=== PATIENT | female | born 1980 | race Caucasian/White ===

== ENCOUNTER 2021-01-12 11:20 | Inpatient (IN) | payer MEDICARE, MEDICAID, SELFPAY ==
[2021-01-12] VITALS (7 sets, daily range): BP systolic 108–130; BP diastolic 53–77; PULSE 73–102; RESP 16–22; TEMP 36–37.5; O2SAT 92–98; BMI 32.3
--- NOTE | ~2021-01-12 | XR_ITS ---
EXAMINATION: XR CHEST CLINICAL INFORMATION: Shortest of breath COMPARISON: None TECHNIQUE: AP portable view of the chest was obtained. FINDINGS: There are patchy regions of bilateral groundglass disease. No pneumothorax or significant pleural effusion. Heart normal size. No evidence of pulmonary edema. XR/XR chest 1V IMPRESSION: Bilateral patchy regions of groundglass opacity which can be seen with reactive airways disease or interstitial/atypical pneumonitis. Covid not excluded.
--- NOTE | ~2021-01-12 | CT_ITS ---
EXAMINATION: CT ABDOMEN AND PELVIS WITHOUT CONTRAST CLINICAL INFORMATION: Abdominal pain. COMPARISON: Chest radiograph done earlier the same day. TECHNIQUE: Multidetector volumetric imaging was performed from the superior aspect of the liver through the pubic symphysis. Sagittal and coronal reformatted images were obtained on the technologist's workstation. This CT examination was performed using dose optimization techniques as appropriate, variously including the following: *Automated exposure control. *Adjustment of mA and/or kV according to patient size (this includes techniques or standardized protocols for targeted exams where dose is matched to indication/reason for exam; i.e. extremities or head). *Use of iterative reconstruction technique. DLP: 768 mGy-cm FINDINGS: LUNG BASES: There are patchy ground-glass airspace opacities throughout the visualized lung bases, similar when compared to the recent chest radiograph. Findings can be seen in the setting of an infectious or inflammatory process, including viral pneumonia. LIVER, GALLBLADDER, AND BILIARY TREE: The liver is normal in size, shape, and attenuation. No focal hepatic lesion or biliary ductal dilatation is present. Status post cholecystectomy. PANCREAS: Unremarkable. SPLEEN: The spleen is enlarged measuring up to 16.5 cm in greatest dimension. ADRENAL GLANDS: Unremarkable. KIDNEYS AND URETERS: The kidneys are normal in size, shape, and attenuation. Left lower pole renal stones measuring 0.4 and 0.4 cm and located approximately 12.2 cm from the posterior axillary line. No right-sided renal stone. No ureteral stone. No hydronephrosis or hydroureter. No perinephric stranding. BLADDER: Unremarkable. GASTROINTESTINAL TRACT: No bowel wall thickening or associated inflammatory change. No small or large bowel obstruction. Postsurgical changes likely indicating prior appendectomy. PERITONEAL CAVITY: No intra-abdominal free air or free fluid. No intra-abdominal mass or organized fluid collection/abscess formation. ABDOMINAL WALL: No significant hernia is appreciated. LYMPH NODES: No significant lymphadenopathy. VASCULAR: No abdominal aortic dilatation. Scattered atherosclerotic calcifications. PELVIC VISCERA: The uterus and adnexa are unremarkable. OSSEOUS STRUCTURES: Unremarkable. CT/CT abdomen pelvis wo con IMPRESSION: 1. Patchy ground-glass airspace opacities throughout the visualized lung bases, similar when compared to the recent chest radiograph. Findings can be seen in the setting of an infectious or inflammatory process, including viral pneumonia. 2. Splenomegaly. 3. Non-obstructing left lower pole renal stones. No hydronephrosis or hydroureter. 4. No intra-abdominal mass, lymphadenopathy, or ascites.
--- NOTE | ~2021-01-12 | XR_ITS ---
EXAMINATION: XR CHEST CLINICAL INFORMATION: Hypoxia COMPARISON: Previous chest x-ray 01/12/2021 TECHNIQUE: Frontal view of the chest was obtained. FINDINGS: The cardiac and mediastinal contours are stable. The lung volumes are low. There is increasing bilateral airspace disease. There is no pleural effusion or pneumothorax. Bony structures are unremarkable. XR/XR chest 1V IMPRESSION: Low lung volumes and increasing bilateral airspace disease. Covid infection should be excluded.
--- NOTE | 2021-01-12 12:57 | ED_ITS ---
HPI - General Adult General Chief complaint: General Medical Stated complaint: FLU [place]S Time Seen by Provider: 01/12/21 12:47 Source: patient Mode of arrival: ambulatory Limitations: no limitations History of Present Illness HPI narrative: 40-year-old female [facility], with a recent exposure to positive COVID personal, patient presented today with generalized body ache, fever, chills, shortness of breath, sneezing and coughing. Patient presented today with her daughter who has similar symptoms. Related Data Allergies Allergy/AdvReac Type Severity Reaction Status Date / Time narco Allergy Unknown Uncoded 01/12/21 11:55 Review of Systems Review of Systems: All other systems are reviewed and are negative Constitutional: Reports as per HPI and Reports no additional constitutional complaints Eyes: Reports as per HPI and Reports no additional eye complaints Reports system reviewed and no additional complaints, except as documented Cardiovascular: Reports as per HPI and Reports no additional cardiovascular complaints Respiratory: Reports as per HPI and Reports no additional respiratory complaints Gastrointestinal: Reports as per HPI and Reports no additional gastrointestinal complaints Genitourinary: Reports no additional female genitourinary complaints Musculoskeletal: Reports no additional musculoskeletal complaints Skin/Breast: Reports system reviewed and no additional complaints, except as docu Psychiatric: Reports no additional psychiatric complaints Endocrine: Reports no additional endocrine complaints Hematologic/Lymphatic: Reports no additional hematologic/lymphatic complaints Allergic/Immunologic: Reports no additional allergic/immunologic complaints Reports system reviewed and no additional complaints, except as documented and Reports Abnormal speech present [facility] Past Medical History Medical History Diabetes Social History Social History Alcohol intake: never Smoking Status: Never smoker Smoked in Last 30 Days: No Use of substances other than those prescribed or required for medical reasons: No Advance Directives: Yes Advance Directives Information Provided: No Advance Directives on File: No Physical Exam Vital Signs: Vital Signs: Last Vital Signs Temp 98.3 F 01/12/21 13:22 Pulse 97 01/12/21 13:22 Resp 22 H 01/12/21 13:22 BP 129/67 01/12/21 13:22 Pulse Ox 92 01/12/21 13:22 Body Mass Index 32.3 Vital signs have been reviewed as appeared to be correct. Blood pressure normal. Heart rate is tachycardic. Respiration rate normal. Temperature normal. Oxygen saturation normal. Appearance: Alert. Oriented X3. No acute distress. Head: Normal external exam. Normocephalic. Atraumatic. No Vidales signs noted. No raccoon eyes noted Eyes: PERRLA. EOMI. Conjunctiva and sclera normal. Eyelids normal. ENT: TM's Normal. Pharynx normal. Uvula midline. Moist mucous membranes. No trismus noted. No drooling noted. No muffled voice noted. Neck: Normal inspection. Neck supple. FROM. No adenopathy. Thyroid Normal. No meningeal signs. No neck mass noted. CVS: Normal heart rate and rhythm. Heart sound normal. No murmurs noted. Pulses normal throughout. Respiratory: No respiratory distress. Painless inspiration. Breath sounds normal. No wheezes/rales/rhonchi noted. Chest nontender. No accessory muscle usage noted or decreased air movement noted. Abdomen: Soft and nontender. Bowel sounds normal in all 4 quadrants. No distention noted. No organomegaly noted. No visible injury noted. Back: No CVA tenderness. Full range of motion noted. Skin: Skin warm and dry. Normal skin color. Normal skin turgor. No rashes/lesions/lacerations noted. Extremities: No lower extremity edema. Extremities exhibit normal range of motion. Extremities nontender. Neuro: Oriented X 3. No motor deficit. No sensory deficit. Reflexes normal. Course Course Course Narrative: 40-year-old female COVID positive, found to be hypoxic while in the emergency department on room air, patient now is 94% on 3 L of oxygen. Medical Decision Making Lab Data Lab results reviewed: Yes I reviewed the patient's lab results. Labs: Lab Results 01/12/21 Range/Units 12:56 COVID-19 (KESHIA) Positive A (Negative) COVID-19 Clin Com See Note Imaging Data Chest x-ray: Radiologist's impression: Bilateral patchy regions of groundglass opacity which can be seen with reactive airways disease or interstitial/atypical pneumonitis. Covid not excluded. Discharge Plan Discharge Clinical Impression: Pneumonia due to COVID-19 virus, Hypoxia Patient Disposition: Admitted As Inpatient
[2021-01-12] MEDS: Ibuprofen 600 MG TABLET PO (13:21)
[2021-01-12 13:26] LABS: COVID-19 Test Positive (Negative)
--- NOTE | 2021-01-12 14:11 | PC.NURSE ---
Pt desat to 89% on room air with ambulating 2 steps. on 2l now 96%.
--- NOTE | 2021-01-12 16:01 | PM.IMHP ---
History of Present Illness Date of Service: 01/12/21 Chief Complaint: Shortness of breath and cough 40F presented with shortness of breath, cough, and fever. Symptoms started 7-10 days ago. Patient had COVID exposure at her [facility]. She tested positive at [facility] ED on 01/08/2021. She was discharged from the ED about point as she was not hypoxic. She was given a pulse ox. Her symptoms worsened. On night prior to admission she had saturations in low 90s so she decided to come to the ED. in ED patient had saturations in the high 80s on ambulation and appeared dyspneic and diaphoretic. Review of Systems Review of Systems: Constitutional: fever, Chills Eyes: denies blurry vision ENT: denies sore throat CVS: denies chest pain Respiratory: dyspnea GI: no abdominal pain : denies dysuria MSK: denies neck pain Skin: denies rash Neuro: denies specific motor weakness Psych: denies suicidal ideation Endocrine: denies heat/cold intoleratnce Hematologic: denies easy bleeding Allergy: denies hives [facility] Medical History Diabetes Hyperlipidemia Proteinuria Pertinent family history: no cad Family history: reviewed and not pertinent Surgical History History of History of knee surgery History of shoulder surgery Hx of breast reduction, elective Social History Alcohol intake: never Smoking Status: Never smoker Smoked in Last 30 Days: No Use of substances other than those prescribed or required for medical reasons: No Advance Directives: Yes Advance Directives Information Provided: No Advance Directives on File: No Meds Allergies Allergy/AdvReac Type Severity Reaction Status Date / Time narco Allergy Unknown Uncoded 01/12/21 11:55 Active Medications: Current Medications Generic Name Dose Route Start Last Admin Trade Name Freq PRN Reason Stop Dose Admin Pharmacy Consult 1 each 01/12/21 15:08 Consult Rx Perform Med Rec MISCELLANE ONCE PRN Consult order Physical Exam Vital Signs and Narrative: Vital Signs: Last Vital Signs Temp 98.3 F 01/12/21 13:22 Pulse 97 01/12/21 13:22 Resp 22 H 01/12/21 13:22 BP 129/67 01/12/21 13:22 Pulse Ox 92 01/12/21 13:22 Body Mass Index 32.3 General: diaphoretic, sob HEENT: atraumatic Neck: normal to visual inspection CVS: S1, S2, RRR Resp: rales Chest: non tender GI: soft, non tender, non distended : no CVA tenderness Skin: no rashes Extremities: no edema Neuro: Oriented X3, grossly intact Psych: cooperative Results Labs Labs: Laboratory Results - last 24 hr 01/12/21 12:56 COVID-19 (KESHIA) Positive A COVID-19 Clin Com See Note Imaging Radiologist's Impressions: Impressions Chest X-Ray 01/12/21 12:57 IMPRESSION: Bilateral patchy regions of groundglass opacity which can be seen with reactive airways disease or interstitial/atypical pneumonitis. Covid not excluded. Assessment and Plan (1) Proteinuria: Status: Acute (2) Hyperlipidemia: Status: Acute (3) Diabetes: Status: Acute (4) Acute respiratory failure with hypoxia: Status: Acute (5) Pneumonia due to COVID-19 virus: Status: Acute 40F presented with shortness of breath and cough Acute hypoxic respiratory failure secondary to COVID pneumonia IV Decadron O2 support High risk due to diabetes, obesity Diabetes with protamine Insulin FREEDOM-I HLD statin obesity weight loss
[2021-01-12 16:26] LABS: Basophils Percent Auto 0.2 % (0-2); Hematocrit 28.5 % (37-47); Hemoglobin 9.6 g/dl (12.0-16.0); Imm Gran Abs Auto 0.04 X10*3/uL (0.00-0.03); Imm Gran Pct Auto 0.7 % (0.0-0.4); Lymphocytes Absolute Auto 1.1 X10*3/uL (1.2-4.9); Lymphocytes Percent Auto 20.7 % (20-40); MANUAL DIFF FLAG SCAN; Mean Corpuscular HGB Conc 33.7 g/dl (31.0-35.0); Mean Corpuscular Hemoglobin 30.1 pg (27.0-33.0); Mean Corpuscular Volume 89.3 fL (80-98); Mean Platelet Volume 10.7 fL (9.4-12.3); Monocytes Absolute Auto 0.4 X10*3/uL (0.1-1.2); Monocytes Percent Auto 7.1 % (2-11); Neutrophils Absolute Auto 3.9 X10*3/uL (2.0-8.3); Neutrophils Percent Auto 71.3 % (45-73); Platelet Count 142 X10*3/uL (160-400); Red Blood Count 3.19 X10*6/uL (4.20-5.50); Red Cell Distribution Width 12.1 % (11.0-16.0); SCAN SMEAR FLAG 1; White Blood Count 5.5 X10*3/uL (4.8-10.8)
[2021-01-12 16:43] LABS: SLIDE REVIEW VERIFIED
[2021-01-12 16:53] LABS: Anion Gap 13 (12-20); Blood Urea Nitrogen 17 mg/dL (9-16); Calcium 7.9 mg/dL (8.4-10.2); Carbon Dioxide 22 mmol/L (22-29); Chloride 105 mmol/L (96-108); Creatinine Clr Calc Pharmacy 96.5; Estimated Glomerular Filt Rate > 60; Glucose Random 146 mg/dL (60-115); Potassium 4.4 mmol/L (3.3-5.1); Sodium 136 mmol/L (135-145)
[2021-01-12] MEDS: dexAMETHasone sod phosphate 4 MG/ML VIAL 6 MG IVPUSH (17:37)
[2021-01-12] MEDS: Morphine Sulfate 2 MG/ML CARTRIDGE IVPUSH (17:44)
[2021-01-12 17:48] LABS: Glucose, Whole Blood 180 mg/dL (60-115)
[2021-01-12] MEDS: Insulin Lispro 100 UNIT/ML 3 ML VIAL SUBCUT ×2 (17:57→22:03)
--- NOTE | 2021-01-12 20:01 | PC.NURSE ---
x1 attempt to call report- awaiting callback
[2021-01-12 20:12] LABS: UPreg QC Valid YES; Urine Pregnancy NEGATIVE (NEGATIVE)
[2021-01-12 21:58] LABS: Glucose, Whole Blood 344 mg/dL (60-115)
[2021-01-12] MEDS: Insulin Glargine,Hum.rec.anlog 100 UNIT/ML 10 ML VIAL 20 UNIT SUBCUT (22:02)
[2021-01-12] MEDS: Enoxaparin Sodium 40 MG/0.4 ML SYRINGE SUBCUT (22:03)
[2021-01-12] MEDS: Atorvastatin Calcium 20 MG TABLET PO (22:03)
[2021-01-12] MEDS: Gabapentin 100 MG CAPSULE PO (22:03)
[2021-01-12 22:55] LABS: Alanine Aminotransferase 27 U/L (0-31); Albumin Level 3.1 g/dL (3.5-5.0); Alkaline Phosphatase 87 U/L (39-117); Anion Gap 15 (12-20); Aspartate Amino Transferase 69 U/L (5-31); Blood Urea Nitrogen 20 mg/dL (9-16); Calcium 7.8 mg/dL (8.4-10.2); Carbon Dioxide 22 mmol/L (22-29); Chloride 103 mmol/L (96-108); Creatinine Clr Calc Pharmacy 77.2; Estimated Glomerular Filt Rate 58; Glucose Random 396 mg/dL (60-115); Lipase 47 U/L (8-78); Potassium 5.2 mmol/L (3.3-5.1); Sodium 135 mmol/L (135-145); Total Protein 6.1 g/dL (6.5-8.0)
[2021-01-13] VITALS (8 sets, daily range): BP systolic 110–126; BP diastolic 55–70; PULSE 71–78; RESP 17–18; TEMP 36.1–37.1; O2SAT 80–96
[2021-01-13] MEDS: 0.9 % Sodium Chloride Flush 3 ML SYRINGE IVFLUSH ×4 (00:05→20:56)
[2021-01-13 07:15] LABS: Hematocrit 30.5 % (37-47); Hemoglobin 10.3 g/dl (12.0-16.0); Imm Gran Abs Auto 0.05 X10*3/uL (0.00-0.03); Imm Gran Pct Auto 1.1 % (0.0-0.4); Lymphocytes Absolute Auto 0.9 X10*3/uL (1.2-4.9); Lymphocytes Percent Auto 19.9 % (20-40); MANUAL DIFF FLAG SCAN; Mean Corpuscular HGB Conc 33.8 g/dl (31.0-35.0); Mean Corpuscular Hemoglobin 30.2 pg (27.0-33.0); Mean Corpuscular Volume 89.4 fL (80-98); Mean Platelet Volume 11.3 fL (9.4-12.3); Monocytes Absolute Auto 0.4 X10*3/uL (0.1-1.2); Monocytes Percent Auto 7.9 % (2-11); Neutrophils Absolute Auto 3.3 X10*3/uL (2.0-8.3); Neutrophils Percent Auto 71.1 % (45-73); Platelet Count 168 X10*3/uL (160-400); Red Blood Count 3.41 X10*6/uL (4.20-5.50); Red Cell Distribution Width 12.1 % (11.0-16.0); SCAN SMEAR FLAG 1; White Blood Count 4.6 X10*3/uL (4.8-10.8)
[2021-01-13 07:19] LABS: Glucose, Whole Blood 233 mg/dL (60-115)
[2021-01-13 07:33] LABS: Anion Gap 15 (12-20); Blood Urea Nitrogen 21 mg/dL (9-16); Carbon Dioxide 22 mmol/L (22-29); Chloride 106 mmol/L (96-108); Creatinine Clr Calc Pharmacy 100.1; Estimated Glomerular Filt Rate > 60; Glucose Random 290 mg/dL (60-115); Potassium 5.3 mmol/L (3.3-5.1); Sodium 138 mmol/L (135-145)
[2021-01-13 08:02] LABS: SLIDE REVIEW VERIFIED
[2021-01-13] MEDS: Insulin Lispro 100 UNIT/ML 3 ML VIAL SUBCUT ×4 (08:31→20:51)
[2021-01-13] MEDS: Fenofibrate 160 MG TABLET PO (08:32)
[2021-01-13] MEDS: metFORMIN HCl 1,000 MG TABLET 1000 MG PO ×2 (08:32→16:54)
[2021-01-13] MEDS: dexAMETHasone sod phosphate 4 MG/ML VIAL 6 MG IVPUSH (08:32)
[2021-01-13] MEDS: Gabapentin 100 MG CAPSULE PO ×3 (08:32→20:52)
--- NOTE | 2021-01-13 09:59 | HO.PM.IMPN ---
Subjective Subjective Date of Service: 01/13/21 Interval History: sob Cardiovascular Cardiovascular: Reports no additional cardiovascular complaints Gastrointestinal Gastrointestinal: Reports no additional gastrointestinal complaints Physical Exam Vital Signs: Vital Signs: Last Vital Signs Temp 97.3 F 01/13/21 07:27 Pulse 75 01/13/21 08:32 Resp 17 01/13/21 07:27 BP 116/64 01/13/21 08:32 Pulse Ox 94 01/13/21 07:27 Body Mass Index 32.3 General: AO X 3, daiphoretic Resp: rhonchi CVS: S1,S2,RRR GI: soft, non tender, non distended Neuro: motor grossly intact Psych: appropriate affect Objective Data Current Medications Generic Name Dose Route Start Last Admin Trade Name Freq PRN Reason Stop Dose Admin Acetaminophen 650 mg 01/12/21 16:52 Acetaminophen 325 Mg Tablet PO Q6H PRN Pain, fever Atorvastatin Calcium 20 mg 01/12/21 21:00 01/12/21 22:03 Atorvastatin Calcium 20 Mg Tablet PO 20 mg BEDTIME CHETNA Administration Dexamethasone Sodium Phosphate 6 mg 01/12/21 16:52 01/13/21 08:32 Dexamethasone Sod Phosphate 4 Mg/Ml Vial IVPUSH 6 mg DAILY CHETNA Administration Enalapril Maleate 5 mg 01/13/21 09:00 01/13/21 08:32 Enalapril Maleate 5 Mg Tablet PO 5 mg DAILY CHETNA Administration Protocol Enoxaparin Sodium 40 mg 01/12/21 20:00 01/12/21 22:03 Enoxaparin Sodium 40 Mg/0.4 Ml Syringe SUBCUT 40 mg Q24H CHETNA Administration Fenofibrate 160 mg 01/13/21 09:00 01/13/21 08:32 Fenofibrate 160 Mg Tablet PO 160 mg DAILY CHETNA Administration Gabapentin 100 mg 01/12/21 21:00 01/13/21 08:32 Gabapentin 100 Mg Capsule PO 100 mg TID CHETNA Administration Insulin Glargine 20 unit 01/12/21 21:00 01/12/21 22:02 Insulin Glargine,Hum.Rec.Anlog 100 Unit/Ml 10 Ml Vial SUBCUT 20 unit BEDTIME CHETNA Administration Insulin Human Lispro 0 unit 01/12/21 16:52 01/13/21 08:31 Insulin Lispro 100 Unit/Ml 3 Ml Vial SUBCUT 4 unit QIDACHS CHETNA Administration Protocol Metformin HCl 1,000 mg 01/13/21 08:00 01/13/21 08:32 Metformin Hcl 1,000 Mg Tablet PO 1,000 mg BIDWM CHETNA Administration Morphine Sulfate 1 mg 01/12/21 20:45 Morphine Sulfate 2 Mg/Ml Cartridge IVPUSH Q6H PRN [facility] Consult 1 each 01/12/21 15:08 Consult Rx Perform Med Rec MISCELLANE ONCE PRN Consult order Sodium Chloride 3 ml 01/13/21 00:00 01/13/21 08:33 0.9 % Sodium Chloride Flush 3 Ml Syringe IVFLUSH 3 ml QSHIFT CHETNA Administration Labs CBC & Chem 7: 01/13/21 06:14 01/13/21 06:14 Assessment and Plan (1) Acute respiratory failure with hypoxia: Status: Acute (2) Pneumonia due to COVID-19 virus: Status: Acute Assessment and Plan: 40F presented with shortness of breath and cough Acute hypoxic respiratory failure secondary to COVID pneumonia IV Decadron day 12/05 O2 support High risk due to diabetes, obesity became severely hypoxic to 70s on ambulation on room air, recovered with rest and 3L o2 Diabetes with protamine Basal bolus Insulin FREEDOM-I HLD statin obesity weight loss
[2021-01-13] MEDS: Acetaminophen 325 MG TABLET 650 MG PO ×2 (10:37→16:54)
--- NOTE | 2021-01-13 10:43 | PC.NURSE ---
0830- Pt 93% on RA. Pt ambulated to bathroom and back, signficant dry cough present. O2 rechecked 80% RA. Pt plced back on 3L via NC, O2 92%. Dr. Carr made aware. No new orders.
[2021-01-13 11:22] LABS: Glucose, Whole Blood 275 mg/dL (60-115)
[2021-01-13] MEDS: Insulin Glargine,Hum.rec.anlog 100 UNIT/ML 10 ML VIAL 20 UNIT SUBCUT ×2 (11:33→20:51)
[2021-01-13] MEDS: Morphine Sulfate 2 MG/ML CARTRIDGE 1 MG IVPUSH (11:44)
[2021-01-13 16:20] LABS: Glucose, Whole Blood 294 mg/dL (60-115)
[2021-01-13 20:36] LABS: Glucose, Whole Blood 285 mg/dL (60-115)
[2021-01-13] MEDS: Enoxaparin Sodium 40 MG/0.4 ML SYRINGE SUBCUT (20:52)
[2021-01-13] MEDS: Atorvastatin Calcium 20 MG TABLET PO (20:52)
[2021-01-14] VITALS (10 sets, daily range): BP systolic 114–130; BP diastolic 63–75; PULSE 75–90; RESP 18–24; TEMP 36.4–37.3; O2SAT 90–94; BMI 32.3
[2021-01-14] MEDS: Morphine Sulfate 2 MG/ML CARTRIDGE 1 MG IVPUSH ×2 (02:09→10:00)
[2021-01-14 07:57] LABS: Glucose, Whole Blood 214 mg/dL (60-115)
[2021-01-14] MEDS: Insulin Lispro 100 UNIT/ML 3 ML VIAL SUBCUT ×4 (08:35→20:37)
[2021-01-14] MEDS: dexAMETHasone sod phosphate 4 MG/ML VIAL 6 MG IVPUSH (08:36)
[2021-01-14] MEDS: 0.9 % Sodium Chloride Flush 3 ML SYRINGE IVFLUSH ×3 (08:36→20:43)
[2021-01-14] MEDS: metFORMIN HCl 1,000 MG TABLET 1000 MG PO ×2 (08:37→16:30)
[2021-01-14] MEDS: Fenofibrate 160 MG TABLET PO (08:37)
[2021-01-14] MEDS: Gabapentin 100 MG CAPSULE PO ×3 (08:37→20:37)
--- NOTE | 2021-01-14 09:07 | MHC.CM.PN ---
Patient is on the Covid Unit and not reachable by phone at [phone]; CM spoke with NOK/MOTHER/Betty @ [phone].Weekend CM addressed IMM. Patient lives in an apartment with her teenage Daughter and she was functionally independent. The goal for dc is home/no services and CM has initiated and will follow for dc planning. Patient's Uncle will provide transportation to home.
--- NOTE | 2021-01-14 09:45 | HO.PM.IMPN ---
Subjective Subjective Date of Service: 01/14/21 Interval History: sob Cardiovascular Cardiovascular: Reports no additional cardiovascular complaints Respiratory Respiratory: Reports no additional respiratory complaints Physical Exam Vital Signs: Vital Signs: Last Vital Signs Temp 99.1 F 01/14/21 08:00 Pulse 86 01/14/21 08:37 Resp 22 H 01/14/21 08:00 BP 124/74 01/14/21 08:37 Pulse Ox 90 L 01/14/21 08:00 Body Mass Index 32.3 General: AO X 3, daiphoretic Resp: rhonchi CVS: S1,S2,RRR GI: soft, non tender, non distended Neuro: motor grossly intact Psych: appropriate affect Objective Data Current Medications Generic Name Dose Route Start Last Admin Trade Name Freq PRN Reason Stop Dose Admin Acetaminophen 650 mg 01/12/21 16:52 01/13/21 16:54 Acetaminophen 325 Mg Tablet PO 650 mg Q6H PRN Administration Pain, fever Atorvastatin Calcium 20 mg 01/12/21 21:00 01/13/21 20:52 Atorvastatin Calcium 20 Mg Tablet PO 20 mg BEDTIME CHETNA Administration Dexamethasone Sodium Phosphate 6 mg 01/12/21 16:52 01/14/21 08:36 Dexamethasone Sod Phosphate 4 Mg/Ml Vial IVPUSH 6 mg DAILY CHETNA Administration Enalapril Maleate 5 mg 01/13/21 09:00 01/14/21 08:37 Enalapril Maleate 5 Mg Tablet PO 5 mg DAILY CHETNA Administration Protocol Enoxaparin Sodium 40 mg 01/12/21 20:00 01/13/21 20:52 Enoxaparin Sodium 40 Mg/0.4 Ml Syringe SUBCUT 40 mg Q24H CHETNA Administration Fenofibrate 160 mg 01/13/21 09:00 01/14/21 08:37 Fenofibrate 160 Mg Tablet PO 160 mg DAILY CHETNA Administration Gabapentin 100 mg 01/12/21 21:00 01/14/21 08:37 Gabapentin 100 Mg Capsule PO 100 mg TID CHTENA Administration Insulin Glargine 20 unit 01/13/21 10:00 01/13/21 20:51 Insulin Glargine,Hum.Rec.Anlog 100 Unit/Ml 10 Ml Vial SUBCUT 20 unit Q12H CHETNA Administration Insulin Human Lispro 0 unit 01/12/21 16:52 01/14/21 08:35 Insulin Lispro 100 Unit/Ml 3 Ml Vial SUBCUT 4 unit QIDACHS CHETNA Administration Protocol Metformin HCl 1,000 mg 01/13/21 08:00 01/14/21 08:37 Metformin Hcl 1,000 Mg Tablet PO 1,000 mg BIDWM CHETNA Administration Morphine Sulfate 1 mg 01/12/21 20:45 01/14/21 02:09 Morphine Sulfate 2 Mg/Ml Cartridge IVPUSH 1 mg Q6H PRN Administration [facility] Consult 1 each 01/12/21 15:08 Consult Rx Perform Med Rec MISCELLANE ONCE PRN Consult order Sodium Chloride 3 ml 01/13/21 00:00 01/14/21 08:36 0.9 % Sodium Chloride Flush 3 Ml Syringe IVFLUSH 3 ml QSHIFT [facility] Administration Labs CBC & Chem 7: 01/13/21 06:14 01/13/21 06:14 Assessment and Plan (1) Acute respiratory failure with hypoxia: Status: Acute (2) Pneumonia due to COVID-19 virus: Status: Acute Assessment and Plan: 40F presented with shortness of breath and cough Acute hypoxic respiratory failure secondary to COVID pneumonia IV Decadron day 01/02 O2 support High risk due to diabetes, obesity Diabetes with protamine Basal bolus Insulin FREEDOM-I HLD statin obesity weight loss
[2021-01-14] MEDS: Insulin Glargine,Hum.rec.anlog 100 UNIT/ML 10 ML VIAL 20 UNIT SUBCUT ×2 (10:00→20:37)
[2021-01-14 11:50] LABS: Glucose, Whole Blood 210 mg/dL (60-115)
[2021-01-14] MEDS: ondansetron HCL 4 MG/2 ML VIAL IVPUSH ×2 (12:06→19:32)
[2021-01-14] MEDS: Morphine Sulfate 2 MG/ML CARTRIDGE IVPUSH ×2 (14:19→19:32)
[2021-01-14 16:19] LABS: Glucose, Whole Blood 225 mg/dL (60-115)
--- NOTE | 2021-01-14 18:33 | PC.NURSE ---
Patient complaining of 9 out of 10 pain to upper abdomen; order for Morphine 2 mg q 4 hours received. Patient resting comfortably, reports improvement with pain. Patient nauseas, order obtained for Zofran, patient reports improvement with nausea. Patient ambulates to bathroom with 1 assist and portable O2. Patient on 4 L of O2, SAT's in the low 90s. No further complaints, no complications.
[2021-01-14 20:10] LABS: Glucose, Whole Blood 196 mg/dL (60-115)
[2021-01-14] MEDS: Atorvastatin Calcium 20 MG TABLET PO (20:37)
[2021-01-14] MEDS: Enoxaparin Sodium 40 MG/0.4 ML SYRINGE SUBCUT (20:38)
[2021-01-15] VITALS (9 sets, daily range): BP systolic 120–125; BP diastolic 67–78; PULSE 70–84; RESP 18–20; TEMP 36.1–37; O2SAT 86–95
[2021-01-15] MEDS: ondansetron HCL 4 MG/2 ML VIAL IVPUSH ×4 (02:35→21:42)
[2021-01-15] MEDS: Morphine Sulfate 2 MG/ML CARTRIDGE IVPUSH ×3 (04:02→16:44)
[2021-01-15 06:51] LABS: Basophils Percent Auto 0.1 % (0-2); Hematocrit 29.9 % (37-47); Hemoglobin 9.8 g/dl (12.0-16.0); Imm Gran Abs Auto 0.21 X10*3/uL (0.00-0.03); Imm Gran Pct Auto 2.1 % (0.0-0.4); Lymphocytes Absolute Auto 1.5 X10*3/uL (1.2-4.9); MANUAL DIFF FLAG SCAN; Mean Corpuscular HGB Conc 32.8 g/dl (31.0-35.0); Mean Corpuscular Hemoglobin 29.6 pg (27.0-33.0); Mean Corpuscular Volume 90.3 fL (80-98); Mean Platelet Volume 10.8 fL (9.4-12.3); Monocytes Absolute Auto 0.8 X10*3/uL (0.1-1.2); Monocytes Percent Auto 7.8 % (2-11); Neutrophils Absolute Auto 7.6 X10*3/uL (2.0-8.3); Platelet Count 262 X10*3/uL (160-400); Red Blood Count 3.31 X10*6/uL (4.20-5.50); Red Cell Distribution Width 12.2 % (11.0-16.0); SCAN SMEAR FLAG 1; White Blood Count 10.1 X10*3/uL (4.8-10.8)
[2021-01-15 07:06] LABS: Anion Gap 15 (12-20); Blood Urea Nitrogen 21 mg/dL (9-16); Carbon Dioxide 26 mmol/L (22-29); Chloride 103 mmol/L (96-108); Estimated Glomerular Filt Rate > 60; Glucose Fasting 166 mg/dL (60-99); Potassium 4.8 mmol/L (3.3-5.1); Sodium 139 mmol/L (135-145)
[2021-01-15 07:14] LABS: Glucose, Whole Blood 153 mg/dL (60-115)
[2021-01-15 07:30] LABS: SLIDE REVIEW VERIFIED
[2021-01-15] MEDS: Insulin Lispro 100 UNIT/ML 3 ML VIAL SUBCUT ×4 (08:19→21:39)
[2021-01-15] MEDS: dexAMETHasone sod phosphate 4 MG/ML VIAL 6 MG IVPUSH (08:19)
[2021-01-15] MEDS: 0.9 % Sodium Chloride Flush 3 ML SYRINGE IVFLUSH ×3 (08:20→21:41)
[2021-01-15] MEDS: Fenofibrate 160 MG TABLET PO (08:20)
[2021-01-15] MEDS: Gabapentin 100 MG CAPSULE PO ×3 (08:20→21:37)
[2021-01-15] MEDS: metFORMIN HCl 1,000 MG TABLET 1000 MG PO ×2 (08:20→16:26)
[2021-01-15] MEDS: Insulin Glargine,Hum.rec.anlog 100 UNIT/ML 10 ML VIAL 20 UNIT SUBCUT ×2 (08:40→21:39)
[2021-01-15 11:09] LABS: Glucose, Whole Blood 220 mg/dL (60-115)
--- NOTE | 2021-01-15 14:29 | HO.PM.IMPN ---
Subjective Subjective Date of Service: 01/15/21 Interval History: Worsening shortness of breath Cardiovascular Cardiovascular: Reports no additional cardiovascular complaints Respiratory Respiratory: Reports no additional respiratory complaints Physical Exam Vital Signs: Vital Signs: Last Vital Signs Temp 97.2 F 01/15/21 11:32 Pulse 80 01/15/21 11:32 Resp 19 01/15/21 11:32 BP 121/78 01/15/21 11:32 Pulse Ox 94 01/15/21 11:32 Body Mass Index 32.3 General: AO X 3, daiphoretic Resp: rhonchi CVS: S1,S2,RRR GI: soft, non tender, non distended Neuro: motor grossly intact Psych: appropriate affect Objective Data Current Medications Generic Name Dose Route Start Last Admin Trade Name Freq PRN Reason Stop Dose Admin Acetaminophen 650 mg 01/12/21 16:52 01/13/21 16:54 Acetaminophen 325 Mg Tablet PO 650 mg Q6H PRN Administration Pain, fever Atorvastatin Calcium 20 mg 01/12/21 21:00 01/14/21 20:37 Atorvastatin Calcium 20 Mg Tablet PO 20 mg BEDTIME CHETNA Administration Dexamethasone Sodium Phosphate 6 mg 01/12/21 16:52 01/15/21 08:19 Dexamethasone Sod Phosphate 4 Mg/Ml Vial IVPUSH 6 mg DAILY CHETNA Administration Enalapril Maleate 5 mg 01/13/21 09:00 01/15/21 08:20 Enalapril Maleate 5 Mg Tablet PO 5 mg DAILY CHETNA Administration Protocol Enoxaparin Sodium 40 mg 01/12/21 20:00 01/14/21 20:38 Enoxaparin Sodium 40 Mg/0.4 Ml Syringe SUBCUT 40 mg Q24H CHETNA Administration Fenofibrate 160 mg 01/13/21 09:00 01/15/21 08:20 Fenofibrate 160 Mg Tablet PO 160 mg DAILY CHETNA Administration Gabapentin 100 mg 01/12/21 21:00 01/15/21 08:20 Gabapentin 100 Mg Capsule PO 100 mg TID CHETNA Administration Insulin Glargine 20 unit 01/13/21 10:00 01/15/21 08:40 Insulin Glargine,Hum.Rec.Anlog 100 Unit/Ml 10 Ml Vial SUBCUT 20 unit Q12H CHETNA Administration Insulin Human Lispro 0 unit 01/12/21 16:52 01/15/21 11:40 Insulin Lispro 100 Unit/Ml 3 Ml Vial SUBCUT 4 unit QIDACHS CHETNA Administration Protocol Metformin HCl 1,000 mg 01/13/21 08:00 01/15/21 08:20 Metformin Hcl 1,000 Mg Tablet PO 1,000 mg BIDWM CHETNA Administration Morphine Sulfate 1 mg 01/12/21 20:45 01/14/21 10:00 Morphine Sulfate 2 Mg/Ml Cartridge IVPUSH 1 mg Q6H PRN Administration [facility] Morphine Sulfate 2 mg 01/14/21 11:20 01/15/21 08:40 Morphine Sulfate 2 Mg/Ml Cartridge IVPUSH 2 mg Q4H PRN Administration pain Ondansetron HCl 4 mg 01/14/21 11:20 01/15/21 08:40 Ondansetron Hcl 4 Mg/2 Ml Vial IVPUSH 4 mg Q6H PRN Administration nausea Pharmacy Consult 1 each 01/12/21 15:08 Consult Rx Perform Med Rec MISCELLANE ONCE PRN Consult order Sodium Chloride 3 ml 01/13/21 00:00 01/15/21 08:20 0.9 % Sodium Chloride Flush 3 Ml Syringe IVFLUSH 3 ml QSHIFT CHETNA Administration Labs CBC & Chem 7: 01/15/21 05:46 01/15/21 05:46 Assessment and Plan (1) Acute respiratory failure with hypoxia: Status: Acute (2) Pneumonia due to COVID-19 virus: Status: Acute Assessment and Plan: 40F presented with shortness of breath and cough Acute hypoxic respiratory failure secondary to COVID pneumonia IV Decadron day 02/02 O2 support, slightly higher today High risk due to diabetes, obesity Diabetes with protamine Basal bolus Insulin FREEDOM-I HLD statin obesity weight loss
[2021-01-15 16:17] LABS: Glucose, Whole Blood 243 mg/dL (60-115)
--- NOTE | 2021-01-15 18:28 | PC.NURSE ---
Patient more tired than usual today. On 4L of O2 via NC this morning but began to desat to low-mid 80s. Patient placed on oximizer at 6L. O2 SAT now in the low 90s. Patient c/o 9 out of 10 upper abdominal pain, reports relief with morphine. Patient also reports nausea and reports relief with IV zofran. Patient ambulated to bathroom x 2 on portable O2 tank without difficulty, refuses further ambulation or to sit in recliner. No further issues or complaints.
[2021-01-15 20:31] LABS: Glucose, Whole Blood 186 mg/dL (60-115)
[2021-01-15] MEDS: Atorvastatin Calcium 20 MG TABLET PO (21:37)
[2021-01-15] MEDS: Morphine Sulfate 2 MG/ML CARTRIDGE 1 MG IVPUSH (21:37)
[2021-01-15] MEDS: Enoxaparin Sodium 40 MG/0.4 ML SYRINGE SUBCUT (21:38)
[2021-01-16] VITALS (7 sets, daily range): BP systolic 113–130; BP diastolic 64–74; PULSE 65–86; RESP 17–24; TEMP 36.1–36.9; O2SAT 91–94
[2021-01-16] MEDS: Morphine Sulfate 2 MG/ML CARTRIDGE IVPUSH ×2 (02:37→14:23)
[2021-01-16] MEDS: ondansetron HCL 4 MG/2 ML VIAL IVPUSH ×2 (02:37→14:23)
[2021-01-16 07:27] LABS: Glucose, Whole Blood 134 mg/dL (60-115)
[2021-01-16] MEDS: dexAMETHasone sod phosphate 4 MG/ML VIAL 6 MG IVPUSH (08:42)
[2021-01-16] MEDS: Gabapentin 100 MG CAPSULE PO ×3 (08:42→21:27)
[2021-01-16] MEDS: metFORMIN HCl 1,000 MG TABLET 1000 MG PO ×2 (08:42→16:37)
[2021-01-16] MEDS: Fenofibrate 160 MG TABLET PO (08:42)
[2021-01-16] MEDS: 0.9 % Sodium Chloride Flush 3 ML SYRINGE IVFLUSH ×2 (08:42→14:23)
[2021-01-16] MEDS: Insulin Glargine,Hum.rec.anlog 100 UNIT/ML 10 ML VIAL 20 UNIT SUBCUT ×2 (10:44→21:28)
[2021-01-16 11:26] LABS: Glucose, Whole Blood 210 mg/dL (60-115)
[2021-01-16] MEDS: Insulin Lispro 100 UNIT/ML 3 ML VIAL SUBCUT ×3 (11:56→21:28)
--- NOTE | 2021-01-16 13:37 | MHC.CM.PN ---
Patient is requiring O2 at 6 liters via NC r/t +COVID. Patient is also on IV MS and IV dexamethasone day 04/04. Discharge plan is home no services. Patient's uncle will provide transportation. CM will continue to follow for discharge needs.
--- NOTE | 2021-01-16 13:58 | HO.PM.IMPN ---
Subjective Subjective Date of Service: 01/16/21 Interval History: sob Cardiovascular Cardiovascular: Reports no additional cardiovascular complaints Gastrointestinal Gastrointestinal: Reports no additional gastrointestinal complaints Physical Exam Vital Signs: Vital Signs: Last Vital Signs Temp 97.8 F 01/16/21 12:00 Pulse 86 01/16/21 12:00 Resp 22 H 01/16/21 12:00 BP 121/64 01/16/21 12:00 Pulse Ox 91 L 01/16/21 12:00 Body Mass Index 32.3 General: AO X 3, daiphoretic Resp: rhonchi CVS: S1,S2,RRR GI: soft, non tender, non distended Neuro: motor grossly intact Psych: appropriate affect Objective Data Current Medications Generic Name Dose Route Start Last Admin Trade Name Freq PRN Reason Stop Dose Admin Acetaminophen 650 mg 01/12/21 16:52 01/13/21 16:54 Acetaminophen 325 Mg Tablet PO 650 mg Q6H PRN Administration Pain, fever Atorvastatin Calcium 20 mg 01/12/21 21:00 01/15/21 21:37 Atorvastatin Calcium 20 Mg Tablet PO 20 mg BEDTIME CHETNA Administration Dexamethasone Sodium Phosphate 6 mg 01/12/21 16:52 01/16/21 08:42 Dexamethasone Sod Phosphate 4 Mg/Ml Vial IVPUSH 6 mg DAILY CHETNA Administration Enalapril Maleate 5 mg 01/13/21 09:00 01/16/21 08:42 Enalapril Maleate 5 Mg Tablet PO 5 mg DAILY CHETNA Administration Protocol Enoxaparin Sodium 40 mg 01/12/21 20:00 01/15/21 21:38 Enoxaparin Sodium 40 Mg/0.4 Ml Syringe SUBCUT 40 mg Q24H CHETNA Administration Fenofibrate 160 mg 01/13/21 09:00 01/16/21 08:42 Fenofibrate 160 Mg Tablet PO 160 mg DAILY CHETNA Administration Gabapentin 100 mg 01/12/21 21:00 01/16/21 08:42 Gabapentin 100 Mg Capsule PO 100 mg TID CHETNA Administration Insulin Glargine 20 unit 01/13/21 10:00 01/16/21 10:44 Insulin Glargine,Hum.Rec.Anlog 100 Unit/Ml 10 Ml Vial SUBCUT 20 unit Q12H [facility]TNA Administration Insulin Human Lispro 0 unit 01/12/21 16:52 01/16/21 11:56 Insulin Lispro 100 Unit/Ml 3 Ml Vial SUBCUT 4 unit QIDACHS [facility] Administration Protocol Metformin HCl 1,000 mg 01/13/21 08:00 01/16/21 08:42 Metformin Hcl 1,000 Mg Tablet PO 1,000 mg BIDWM [facility]TNA Administration Morphine Sulfate 1 mg 01/12/21 20:45 01/15/21 21:37 Morphine Sulfate 2 Mg/Ml Cartridge IVPUSH 1 mg Q6H PRN Administration Breakthrough Pain Morphine Sulfate 2 mg 01/14/21 11:20 01/16/21 02:37 Morphine Sulfate 2 Mg/Ml Cartridge IVPUSH 2 mg Q4H PRN Administration pain Ondansetron HCl 4 mg 01/14/21 11:20 01/16/21 02:37 Ondansetron Hcl 4 Mg/2 Ml Vial IVPUSH 4 mg Q6H PRN Administration nausea Pharmacy Consult 1 each 01/12/21 15:08 Consult Rx Perform Med Rec MISCELLANE ONCE PRN Consult order Sodium Chloride 3 ml 01/13/21 00:00 01/16/21 08:42 0.9 % Sodium Chloride Flush 3 Ml Syringe IVFLUSH 3 ml QSHIFT [facility] Administration Labs CBC & Chem 7: 01/15/21 05:46 01/15/21 05:46 Assessment and Plan (1) Acute respiratory failure with hypoxia: Status: Acute (2) Pneumonia due to COVID-19 virus: Status: Acute Assessment and Plan: 40F presented with shortness of breath and cough Acute hypoxic respiratory failure secondary to COVID pneumonia IV Decadron day 03/04 O2 support, stable today but unable to wean High risk due to diabetes, obesity Diabetes with protamine Basal bolus Insulin FREEDOM-I HLD statin obesity weight loss
[2021-01-16 16:20] LABS: Glucose, Whole Blood 241 mg/dL (60-115)
--- NOTE | 2021-01-16 17:31 | PC.NURSE ---
PT ON 6L OXIMIZER. SATS RANGING FROM 88-94%.
[2021-01-16 20:33] LABS: Glucose, Whole Blood 168 mg/dL (60-115)
[2021-01-16] MEDS: Enoxaparin Sodium 40 MG/0.4 ML SYRINGE SUBCUT (21:27)
[2021-01-16] MEDS: Atorvastatin Calcium 20 MG TABLET PO (21:27)
[2021-01-16] MEDS: Morphine Sulfate 2 MG/ML CARTRIDGE 1 MG IVPUSH (21:55)
[2021-01-17] VITALS (7 sets, daily range): BP systolic 119–130; BP diastolic 58–74; PULSE 69–86; RESP 18–20; TEMP 36–37; O2SAT 90–95
[2021-01-17] MEDS: 0.9 % Sodium Chloride Flush 3 ML SYRINGE IVFLUSH ×4 (00:19→21:53)
[2021-01-17] MEDS: Morphine Sulfate 2 MG/ML CARTRIDGE 1 MG IVPUSH (03:51)
[2021-01-17 07:25] LABS: Glucose, Whole Blood 119 mg/dL (60-115)
[2021-01-17] MEDS: dexAMETHasone sod phosphate 4 MG/ML VIAL 6 MG IVPUSH (08:22)
[2021-01-17] MEDS: metFORMIN HCl 1,000 MG TABLET 1000 MG PO ×2 (08:23→16:25)
[2021-01-17] MEDS: Gabapentin 100 MG CAPSULE PO ×3 (08:23→21:53)
[2021-01-17] MEDS: Fenofibrate 160 MG TABLET PO (08:23)
[2021-01-17] MEDS: Insulin Glargine,Hum.rec.anlog 100 UNIT/ML 10 ML VIAL 20 UNIT SUBCUT (08:26)
[2021-01-17 11:07] LABS: Glucose, Whole Blood 204 mg/dL (60-115)
[2021-01-17] MEDS: Insulin Lispro 100 UNIT/ML 3 ML VIAL SUBCUT ×2 (11:41→16:26)
--- NOTE | 2021-01-17 14:23 | P.PNIM_ITS ---
Subjective Subjective Date of Service: 01/17/21 Interval History: Remain short of breath. She is on 6 L of oxygen and satting at 95%. Physical Exam Vital Signs: Vital Signs: Last Vital Signs Temp 98.6 F 01/17/21 11:28 Pulse 78 01/17/21 11:28 Resp 18 01/17/21 11:28 BP 122/70 01/17/21 11:28 Pulse Ox 95 01/17/21 11:28 Body Mass Index 32.3 General: AO X 3, no acute distress Resp: Normal respiratory effort, no accessory muscle use. CVS: regular rate on monitor GI: +BS, NT, no distention Skin: No rash Neuro: motor grossly intact Psych: appropriate affect Objective Data Current Medications Generic Name Dose Route Start Last Admin Trade Name Freq PRN Reason Stop Dose Admin Acetaminophen 650 mg 01/12/21 16:52 01/13/21 16:54 Acetaminophen 325 Mg Tablet PO 650 mg Q6H PRN Administration Pain, fever Atorvastatin Calcium 20 mg 01/12/21 21:00 01/16/21 21:27 Atorvastatin Calcium 20 Mg Tablet PO 20 mg BEDTIME CHETNA Administration Dexamethasone Sodium Phosphate 6 mg 01/12/21 16:52 01/17/21 08:22 Dexamethasone Sod Phosphate 4 Mg/Ml Vial IVPUSH 6 mg DAILY CHETNA Administration Enalapril Maleate 5 mg 01/13/21 09:00 01/17/21 08:23 Enalapril Maleate 5 Mg Tablet PO 5 mg DAILY CHETNA Administration Protocol Enoxaparin Sodium 40 mg 01/12/21 20:00 01/16/21 21:27 Enoxaparin Sodium 40 Mg/0.4 Ml Syringe SUBCUT 40 mg Q24H [facility]TNA Administration Fenofibrate 160 mg 01/13/21 09:00 01/17/21 08:23 Fenofibrate 160 Mg Tablet PO 160 mg DAILY CHETNA Administration Gabapentin 100 mg 01/12/21 21:00 01/17/21 08:23 Gabapentin 100 Mg Capsule PO 100 mg TID CHETNA Administration Insulin Glargine 20 unit 01/13/21 10:00 01/17/21 08:26 Insulin Glargine,Hum.Rec.Anlog 100 Unit/Ml 10 Ml Vial SUBCUT 20 unit Q12H [facility]TNA Administration Insulin Human Lispro 0 unit 01/12/21 16:52 01/17/21 11:41 Insulin Lispro 100 Unit/Ml 3 Ml Vial SUBCUT 4 unit QIDACHS [facility] Administration Protocol Metformin HCl 1,000 mg 01/13/21 08:00 01/17/21 08:23 Metformin Hcl 1,000 Mg Tablet PO 1,000 mg BIDWM [facility]TNA Administration Morphine Sulfate 1 mg 01/12/21 20:45 01/17/21 03:51 Morphine Sulfate 2 Mg/Ml Cartridge IVPUSH 1 mg Q6H PRN Administration Breakthrough Pain Morphine Sulfate 2 mg 01/14/21 11:20 01/16/21 14:23 Morphine Sulfate 2 Mg/Ml Cartridge IVPUSH 2 mg Q4H PRN Administration pain Ondansetron HCl 4 mg 01/14/21 11:20 01/16/21 14:23 Ondansetron Hcl 4 Mg/2 Ml Vial IVPUSH 4 mg Q6H PRN Administration nausea Pharmacy Consult 1 each 01/12/21 15:08 Consult Rx Perform Med Rec MISCELLANE ONCE PRN Consult order Sodium Chloride 3 ml 01/13/21 00:00 01/17/21 11:37 0.9 % Sodium Chloride Flush 3 Ml Syringe IVFLUSH 3 ml QSHIFT [facility] Administration Labs CBC & Chem 7: 01/15/21 05:46 01/15/21 05:46 Assessment and Plan (1) Acute respiratory failure with hypoxia: Status: Acute (2) Pneumonia due to COVID-19 virus: Status: Acute Assessment and Plan: 40F w/ acute hypoxic respiratory failure due to COVID pneumonia. Acute hypoxic respiratory failure secondary to COVID pneumonia--slow to improve IV Decadron day 04/04 O2 support, wean to O2 sat of 90% or better High risk due to diabetes, obesity Diabetes with proteinuria Basal bolus Insulin FREEDOM-I HLD statin obesity weight loss advice as can complicate her overall medical issues. Lovenox for DVT prophylaxis.
[2021-01-17] MEDS: ondansetron HCL 4 MG/2 ML VIAL IVPUSH (15:10)
[2021-01-17] MEDS: Morphine Sulfate 2 MG/ML CARTRIDGE IVPUSH ×2 (15:12→21:53)
[2021-01-17 16:03] LABS: Glucose, Whole Blood 211 mg/dL (60-115)
[2021-01-17] MEDS: Enoxaparin Sodium 40 MG/0.4 ML SYRINGE SUBCUT (19:42)
[2021-01-17 20:03] LABS: Glucose, Whole Blood 98 mg/dL (60-115)
[2021-01-17] MEDS: Atorvastatin Calcium 20 MG TABLET PO (21:53)
[2021-01-18] VITALS (7 sets, daily range): BP systolic 115–125; BP diastolic 57–71; PULSE 72–78; RESP 18–24; TEMP 36–37; O2SAT 92–98
[2021-01-18] MEDS: Morphine Sulfate 2 MG/ML CARTRIDGE IVPUSH (03:19)
[2021-01-18 07:22] LABS: Glucose, Whole Blood 124 mg/dL (60-115)
[2021-01-18] MEDS: dexAMETHasone sod phosphate 4 MG/ML VIAL 6 MG IVPUSH (07:42)
[2021-01-18] MEDS: Fenofibrate 160 MG TABLET PO (07:43)
[2021-01-18] MEDS: Gabapentin 100 MG CAPSULE PO ×3 (07:43→20:35)
[2021-01-18] MEDS: 0.9 % Sodium Chloride Flush 3 ML SYRINGE IVFLUSH ×2 (07:43→18:05)
[2021-01-18] MEDS: metFORMIN HCl 1,000 MG TABLET 1000 MG PO ×2 (07:43→18:04)
--- NOTE | 2021-01-18 09:45 | HO.PM.IMPN ---
Subjective Subjective Date of Service: 01/18/21 Interval History: Remain short of breath. She is on high flow cannula at 93%, c/o some abd pain ongoing since got covid Physical Exam Vital Signs: Vital Signs: Last Vital Signs Temp 98.1 F 01/18/21 07:17 Pulse 72 01/18/21 07:17 Resp 20 01/18/21 07:17 BP 122/63 01/18/21 07:17 Pulse Ox 92 01/18/21 07:17 Body Mass Index 32.3 General: AO X 3, no acute distress Resp: normal resp effort, CVS: S1,S2,RRR GI: +BS, NT, non specific tenderness Skin: No rash Neuro: motor grossly intact Psych: appropriate affect Objective Data Current Medications Generic Name Dose Route Start Last Admin Trade Name Freq PRN Reason Stop Dose Admin Acetaminophen 650 mg 01/12/21 16:52 01/13/21 16:54 Acetaminophen 325 Mg Tablet PO 650 mg Q6H PRN Administration Pain, fever Atorvastatin Calcium 20 mg 01/12/21 21:00 01/17/21 21:53 Atorvastatin Calcium 20 Mg Tablet PO 20 mg BEDTIME CHETNA Administration Dexamethasone Sodium Phosphate 6 mg 01/12/21 16:52 01/18/21 07:42 Dexamethasone Sod Phosphate 4 Mg/Ml Vial IVPUSH 6 mg DAILY CHETNA Administration Enalapril Maleate 5 mg 01/13/21 09:00 01/18/21 07:43 Enalapril Maleate 5 Mg Tablet PO 5 mg DAILY CHETNA Administration Protocol Enoxaparin Sodium 40 mg 01/12/21 20:00 01/17/21 19:42 Enoxaparin Sodium 40 Mg/0.4 Ml Syringe SUBCUT 40 mg Q24H [facility] Administration Fenofibrate 160 mg 01/13/21 09:00 01/18/21 07:43 Fenofibrate 160 Mg Tablet PO 160 mg DAILY CHETNA Administration Gabapentin 100 mg 01/12/21 21:00 01/18/21 07:43 Gabapentin 100 Mg Capsule PO 100 mg TID CHETNA Administration Insulin Glargine 20 unit 01/13/21 10:00 01/18/21 08:26 Insulin Glargine,Hum.Rec.Anlog 100 Unit/Ml 10 Ml Vial SUBCUT Not Given Q12H CHETNA Insulin Human Lispro 0 unit 01/12/21 16:52 01/18/21 07:23 Insulin Lispro 100 Unit/Ml 3 Ml Vial SUBCUT Not Given QIDACHS [facility] Protocol Metformin HCl 1,000 mg 01/13/21 08:00 01/18/21 07:43 Metformin Hcl 1,000 Mg Tablet PO 1,000 mg BIDWM CHETNA Administration Morphine Sulfate 2 mg 01/14/21 11:20 01/18/21 03:19 Morphine Sulfate 2 Mg/Ml Cartridge IVPUSH 2 mg Q4H PRN Administration pain Ondansetron HCl 4 mg 01/14/21 11:20 01/17/21 15:10 Ondansetron Hcl 4 Mg/2 Ml Vial IVPUSH 4 mg Q6H PRN Administration nausea Oxycodone HCl 5 mg 01/18/21 09:43 Oxycodone Hcl Immed Release 5 Mg Tablet PO Q6H PRN Pain, Severe (Pain Scale 7-10) Pharmacy Consult 1 each 01/12/21 15:08 Consult Rx Perform Med Rec MISCELLANE ONCE PRN Consult order Sodium Chloride 3 ml 01/13/21 00:00 01/18/21 07:43 0.9 % Sodium Chloride Flush 3 Ml Syringe IVFLUSH 3 ml QSHIFT [facility] Administration Labs CBC & Chem 7: 01/15/21 05:46 01/15/21 05:46 Assessment and Plan (1) Acute respiratory failure with hypoxia: Status: Acute (2) Pneumonia due to COVID-19 virus: Status: Acute Assessment and Plan: 40F w/ acute hypoxic respiratory failure due to COVID pneumonia. Acute hypoxic respiratory failure secondary to COVID pneumonia--slow to improve IV Decadron day 05/04 O2 support, wean to O2 sat of 90% or better High risk due to diabetes, obesity Incentive spirometry Diabetes with proteinuria Basal bolus Insulin FREEDOM-I HLD statin obesity weight loss advice as can complicate her overall medical issues. Home over the weekend Lovenox for DVT prophylaxis.
[2021-01-18] MEDS: oxyCODONE HCl Immed Release 5 MG TABLET PO ×3 (09:51→20:35)
[2021-01-18 11:21] LABS: Glucose, Whole Blood 245 mg/dL (60-115)
[2021-01-18] MEDS: Insulin Lispro 100 UNIT/ML 3 ML VIAL SUBCUT ×2 (11:30→18:04)
--- NOTE | 2021-01-18 12:36 | MHC.CM.PN ---
per rounds no expected dc at this time
[2021-01-18 18:03] LABS: Glucose, Whole Blood 248 mg/dL (60-115)
[2021-01-18 20:01] LABS: Glucose, Whole Blood 259 mg/dL (60-115)
[2021-01-18] MEDS: Enoxaparin Sodium 40 MG/0.4 ML SYRINGE SUBCUT (20:35)
[2021-01-18] MEDS: Atorvastatin Calcium 20 MG TABLET PO (20:35)
[2021-01-18] MEDS: Insulin Glargine,Hum.rec.anlog 100 UNIT/ML 10 ML VIAL 20 UNIT SUBCUT (20:35)
[2021-01-19] VITALS (7 sets, daily range): BP systolic 114–122; BP diastolic 64–75; PULSE 75–89; RESP 20–26; TEMP 36–36.6; O2SAT 90–97
[2021-01-19] MEDS: 0.9 % Sodium Chloride Flush 3 ML SYRINGE IVFLUSH ×4 (02:22→22:48)
[2021-01-19] MEDS: guaiFENesin DM 100/10/5 ML 5 ML SYRUP PO (03:05)
[2021-01-19 07:41] LABS: Glucose, Whole Blood 233 mg/dL (60-115)
[2021-01-19] MEDS: Insulin Lispro 100 UNIT/ML 3 ML VIAL SUBCUT ×4 (08:28→22:43)
[2021-01-19] MEDS: dexAMETHasone sod phosphate 4 MG/ML VIAL 6 MG IVPUSH (08:29)
[2021-01-19] MEDS: Gabapentin 100 MG CAPSULE PO ×3 (08:36→22:43)
[2021-01-19] MEDS: metFORMIN HCl 1,000 MG TABLET 1000 MG PO ×2 (08:36→16:25)
[2021-01-19] MEDS: Fenofibrate 160 MG TABLET PO (08:36)
--- NOTE | 2021-01-19 10:48 | HO.PM.IMPN ---
Subjective Subjective Date of Service: 01/19/21 Interval History: Seen in follow-up for acute respiratory failure related to COVID-19 pneumonia. Patient we poor been still short of breath all to saturation 91% on 11 L. She is complaining of headaches also. Review of Systems Gen: no fever Resp: +sob, no cough CV: no chest, no SHOEMAKER, no leg edema GI: No n/v, no abd pain Neuro: No confusion, headache Physical Exam Vital Signs: Vital Signs: Last Vital Signs Temp 97.9 F 01/19/21 08:42 Pulse 89 01/19/21 08:42 Resp 24 H 01/19/21 08:42 BP 116/72 01/19/21 08:42 Pulse Ox 91 L 01/19/21 08:42 Body Mass Index 32.3 General: AO X 3, no acute distress Resp: Normal respiratory effort. CVS: RRR on monitor GI: +BS, NT, no distention Skin: No rash Neuro: motor grossly intact Psych: appropriate affect Objective Data Current Medications Generic Name Dose Route Start Last Admin Trade Name Freq PRN Reason Stop Dose Admin Acetaminophen 650 mg 01/12/21 16:52 01/13/21 16:54 Acetaminophen 325 Mg Tablet PO 650 mg Q6H PRN Administration Pain, fever Atorvastatin Calcium 20 mg 01/12/21 21:00 01/18/21 20:35 Atorvastatin Calcium 20 Mg Tablet PO 20 mg BEDTIME CHETNA Administration Dexamethasone Sodium Phosphate 6 mg 01/12/21 16:52 01/19/21 08:29 Dexamethasone Sod Phosphate 4 Mg/Ml Vial IVPUSH 6 mg DAILY CHETNA Administration Enalapril Maleate 5 mg 01/13/21 09:00 01/19/21 08:34 Enalapril Maleate 5 Mg Tablet PO 5 mg DAILY CHETNA Administration Protocol Enoxaparin Sodium 40 mg 01/12/21 20:00 01/18/21 20:35 Enoxaparin Sodium 40 Mg/0.4 Ml Syringe SUBCUT 40 mg Q24H CHETNA Administration Fenofibrate 160 mg 01/13/21 09:00 01/19/21 08:36 Fenofibrate 160 Mg Tablet PO 160 mg DAILY CHETNA Administration Gabapentin 100 mg 01/12/21 21:00 01/19/21 08:36 Gabapentin 100 Mg Capsule PO 100 mg TID CHETNA Administration Guaifenesin/Dextromethorphan 5 ml 01/19/21 02:43 01/19/21 03:05 Guaifenesin Dm 100/10/5 Ml 5 Ml Syrup PO 5 ml Q6H PRN Administration Cough Insulin Glargine 20 unit 01/13/21 10:00 01/18/21 20:35 Insulin Glargine,Hum.Rec.Anlog 100 Unit/Ml 10 Ml Vial SUBCUT 20 unit Q12H CHETNA Administration Insulin Human Lispro 0 unit 01/12/21 16:52 01/19/21 08:28 Insulin Lispro 100 Unit/Ml 3 Ml Vial SUBCUT 4 unit QIDACHS [facility] Administration Protocol Metformin HCl 1,000 mg 01/13/21 08:00 01/19/21 08:36 Metformin Hcl 1,000 Mg Tablet PO 1,000 mg BIDWM CHETNA Administration Ondansetron HCl 4 mg 01/14/21 11:20 01/17/21 15:10 Ondansetron Hcl 4 Mg/2 Ml Vial IVPUSH 4 mg Q6H PRN Administration nausea Oxycodone HCl 5 mg 01/18/21 09:43 01/18/21 20:35 Oxycodone Hcl Immed Release 5 Mg Tablet PO 5 mg Q6H PRN Administration Pain, Severe (Pain Scale 7-10) Pharmacy Consult 1 each 01/12/21 15:08 Consult Rx Perform Med Rec MISCELLANE ONCE PRN Consult order Sodium Chloride 3 ml 01/13/21 00:00 01/19/21 08:29 0.9 % Sodium Chloride Flush 3 Ml Syringe IVFLUSH 3 ml QSHIFT [facility] Administration Labs CBC & Chem 7: 01/15/21 05:46 01/15/21 05:46 Assessment and Plan (1) Acute respiratory failure with hypoxia: Status: Acute (2) Pneumonia due to COVID-19 virus: Status: Acute Assessment and Plan: 40F w/ acute hypoxic respiratory failure due to COVID pneumonia. Acute hypoxic respiratory failure secondary to COVID pneumonia--slow to improve IV Decadron day 06/04 O2 support, wean to O2 sat of 90% or better High risk due to diabetes, obesity Incentive spirometry Diabetes with proteinuria Basal bolus Insulin FREEDOM-I HLD statin obesity weight loss advice as can complicate her overall medical issues. Home over the weekend Lovenox for DVT prophylaxis.
[2021-01-19] MEDS: Insulin Glargine,Hum.rec.anlog 100 UNIT/ML 10 ML VIAL 20 UNIT SUBCUT ×2 (11:21→22:44)
[2021-01-19 11:31] LABS: Glucose, Whole Blood 265 mg/dL (60-115)
[2021-01-19 16:01] LABS: Glucose, Whole Blood 341 mg/dL (60-115)
[2021-01-19 19:54] LABS: Glucose, Whole Blood 248 mg/dL (60-115)
[2021-01-19] MEDS: Atorvastatin Calcium 20 MG TABLET PO (22:43)
[2021-01-19] MEDS: Enoxaparin Sodium 40 MG/0.4 ML SYRINGE SUBCUT (22:43)
[2021-01-20] VITALS (7 sets, daily range): BP systolic 109–137; BP diastolic 60–79; PULSE 76–85; RESP 18–22; TEMP 36.1–37; O2SAT 91–96
[2021-01-20] MEDS: oxyCODONE HCl Immed Release 5 MG TABLET PO ×3 (03:44→16:29)
[2021-01-20] MEDS: ondansetron HCL 4 MG/2 ML VIAL IVPUSH (03:45)
[2021-01-20 07:31] LABS: Glucose, Whole Blood 233 mg/dL (60-115)
[2021-01-20] MEDS: Gabapentin 100 MG CAPSULE PO ×3 (08:15→20:53)
[2021-01-20] MEDS: metFORMIN HCl 1,000 MG TABLET 1000 MG PO ×2 (08:15→16:26)
[2021-01-20] MEDS: Insulin Lispro 100 UNIT/ML 3 ML VIAL SUBCUT ×4 (08:16→20:53)
[2021-01-20] MEDS: dexAMETHasone sod phosphate 4 MG/ML VIAL 6 MG IVPUSH (08:16)
[2021-01-20] MEDS: 0.9 % Sodium Chloride Flush 3 ML SYRINGE IVFLUSH ×3 (08:16→23:43)
[2021-01-20] MEDS: Fenofibrate 160 MG TABLET PO (08:16)
[2021-01-20] MEDS: Insulin Glargine,Hum.rec.anlog 100 UNIT/ML 10 ML VIAL 20 UNIT SUBCUT (09:32)
[2021-01-20 11:17] LABS: Glucose, Whole Blood 324 mg/dL (60-115)
[2021-01-20 16:03] LABS: Glucose, Whole Blood 321 mg/dL (60-115)
--- NOTE | 2021-01-20 16:46 | HO.PM.IMPN ---
Subjective Subjective Date of Service: 01/20/21 Interval History: states dyspnea slightly improved afebrile no chest pain still on quite a bit of O2- 11L via Oximizer, down from 12L yesterday Physical Exam Vital Signs: Vital Signs: Last Vital Signs Temp 98.6 F 01/20/21 15:08 Pulse 80 01/20/21 15:08 Resp 20 01/20/21 15:08 BP 117/70 01/20/21 15:08 Pulse Ox 91 L 01/20/21 15:08 Body Mass Index 32.3 Gen: mild dyspnea HEENT: sclera anicteric, moist mucus membranes Neck: supple Lungs: auscultation deferred due to COVID-19 Heart: normal peripheral pulses Abd: soft, non-tender, non-distended Ext: no cyanosis, clubbing, or edema Skin: warm/well-perfused Neuro: alert and oriented x3, no focal findings Psych: appropriate affect Objective Data Current Medications Generic Name Dose Route Start Last Admin Trade Name Freq PRN Reason Stop Dose Admin Acetaminophen 650 mg 01/12/21 16:52 01/13/21 16:54 Acetaminophen 325 Mg Tablet PO 650 mg Q6H PRN Administration Pain, fever Atorvastatin Calcium 20 mg 01/12/21 21:00 01/19/21 22:43 Atorvastatin Calcium 20 Mg Tablet PO 20 mg BEDTIME CHETNA Administration Dexamethasone Sodium Phosphate 6 mg 01/12/21 16:52 01/20/21 08:16 Dexamethasone Sod Phosphate 4 Mg/Ml Vial IVPUSH 6 mg DAILY CHETNA Administration Enalapril Maleate 5 mg 01/13/21 09:00 01/20/21 08:15 Enalapril Maleate 5 Mg Tablet PO 5 mg DAILY CHETNA Administration Protocol Enoxaparin Sodium 40 mg 01/12/21 20:00 01/19/21 22:43 Enoxaparin Sodium 40 Mg/0.4 Ml Syringe SUBCUT 40 mg Q24H [facility] Administration Fenofibrate 160 mg 01/13/21 09:00 01/20/21 08:16 Fenofibrate 160 Mg Tablet PO 160 mg DAILY CHETNA Administration Gabapentin 100 mg 01/12/21 21:00 01/20/21 15:04 Gabapentin 100 Mg Capsule PO 100 mg TID CHETNA Administration Guaifenesin/Dextromethorphan 5 ml 01/19/21 02:43 01/19/21 03:05 Guaifenesin Dm 100/10/5 Ml 5 Ml Syrup PO 5 ml Q6H PRN Administration Cough Insulin Glargine 30 unit 01/20/21 22:00 Insulin Glargine,Hum.Rec.Anlog 100 Unit/Ml 10 Ml Vial SUBCUT Q12H [facility] Insulin Human Lispro 0 unit 01/12/21 16:52 01/20/21 16:26 Insulin Lispro 100 Unit/Ml 3 Ml Vial SUBCUT 8 unit QIDACHS [facility] Administration Protocol Metformin HCl 1,000 mg 01/13/21 08:00 01/20/21 16:26 Metformin Hcl 1,000 Mg Tablet PO 1,000 mg BIDWM [facility] Administration Ondansetron HCl 4 mg 01/14/21 11:20 01/20/21 03:45 Ondansetron Hcl 4 Mg/2 Ml Vial IVPUSH 4 mg Q6H PRN Administration nausea Oxycodone HCl 5 mg 01/18/21 09:43 01/20/21 16:29 Oxycodone Hcl Immed Release 5 Mg Tablet PO 5 mg Q6H PRN Administration Pain, Severe (Pain Scale 7-10) Pharmacy Consult 1 each 01/12/21 15:08 Consult Rx Perform Med Rec MISCELLANE ONCE PRN Consult order Sodium Chloride 3 ml 01/13/21 00:00 01/20/21 15:04 0.9 % Sodium Chloride Flush 3 Ml Syringe IVFLUSH 3 ml QSHIFT [facility] Administration Labs CBC & Chem 7: 01/15/21 05:46 01/15/21 05:46 Labs: Laboratory Results - last 24 hr 01/19/21 01/20/21 01/20/21 19:50 07:18 11:09 POC Glucose 248 H 233 H 324 H 01/20/21 15:59 POC Glucose 321 H Assessment and Plan (1) Acute respiratory failure with hypoxia: Status: Acute (2) Pneumonia due to COVID-19 virus: Status: Acute Assessment and Plan: hospital d#9 40yo with DM2, obesity admitted for hypoxia from COVID-19 pneumonia # acute hypoxic respiratory failure - encouraged awake proning, wean O2 as tolerated # COVID-19 pneumonia - dexamethasone d#07/05, recheck labs tomorrow # DM2 in obese patient with proteinuria - increase glargine, continue lispro, continue MTF - continue FREEDOM-I # HLD - continue statin # VTE ppx - LMWH
[2021-01-20 20:15] LABS: Glucose, Whole Blood 222 mg/dL (60-115)
[2021-01-20] MEDS: Atorvastatin Calcium 20 MG TABLET PO (20:53)
[2021-01-20] MEDS: Enoxaparin Sodium 40 MG/0.4 ML SYRINGE SUBCUT (20:53)
[2021-01-20] MEDS: Insulin Glargine,Hum.rec.anlog 100 UNIT/ML 10 ML VIAL 30 UNIT SUBCUT (20:54)
[2021-01-21 03:40] VITALS: BP 132/79; PULSE 74; RESP 18; TEMP 37.1; O2SAT 98
[2021-01-21 06:30] LABS: MANUAL DIFF FLAG NO
[2021-01-21 06:57] LABS: Basophils Absolute Auto 0.1 X10*3/uL (0.0-0.2); Basophils Percent Auto 0.5 % (0-2); Eosinophils Absolute Auto 0.2 X10*3/uL (0.0-0.4); Eosinophils Percent Auto 2.2 % (0-4); Hematocrit 29.6 % (37-47); Hemoglobin 9.9 g/dl (12.0-16.0); Imm Gran Abs Auto 0.51 X10*3/uL (0.00-0.03); Imm Gran Pct Auto 4.8 % (0.0-0.4); Lymphocytes Absolute Auto 2.5 X10*3/uL (1.2-4.9); Mean Corpuscular HGB Conc 33.4 g/dl (31.0-35.0); Mean Corpuscular Hemoglobin 29.6 pg (27.0-33.0); Mean Corpuscular Volume 88.6 fL (80-98); Mean Platelet Volume 10.5 fL (9.4-12.3); Monocytes Absolute Auto 0.8 X10*3/uL (0.1-1.2); Monocytes Percent Auto 7.5 % (2-11); Neutrophils Absolute Auto 6.7 X10*3/uL (2.0-8.3); Platelet Count 433 X10*3/uL (160-400); Red Blood Count 3.34 X10*6/uL (4.20-5.50); Red Cell Distribution Width 12.1 % (11.0-16.0); White Blood Count 10.7 X10*3/uL (4.8-10.8)
[2021-01-21 07:21] LABS: Glucose, Whole Blood 209 mg/dL (60-115)
[2021-01-21 07:22] VITALS: BP 119/67; PULSE 88; RESP 20; TEMP 37.2; O2SAT 90
[2021-01-21 07:22] LABS: Alanine Aminotransferase 13 U/L (0-31); Albumin Level 2.8 g/dL (3.5-5.0); Alkaline Phosphatase 65 U/L (39-117); Anion Gap 16 (12-20); Aspartate Amino Transferase 14 U/L (5-31); Bilirubin Total 0.5 mg/dL (0.0-1.0); Blood Urea Nitrogen 21 mg/dL (9-16); C Reactive Protein 6.68 mg/dL (< or = 0.50); Calcium 8.6 mg/dL (8.4-10.2); Carbon Dioxide 23 mmol/L (22-29); Chloride 103 mmol/L (96-108); Creatinine Clr Calc Pharmacy 112.6; Estimated Glomerular Filt Rate > 60; Glucose Random 214 mg/dL (60-115); Lactate Dehydrogenase 260 U/L (122-220); Potassium 5.1 mmol/L (3.3-5.1); Sodium 137 mmol/L (135-145); Total Protein 6.1 g/dL (6.5-8.0)
[2021-01-21 07:25] LABS: Ferritin 555 ng/mL (10-250)
[2021-01-21] MEDS: Insulin Lispro 100 UNIT/ML 3 ML VIAL SUBCUT ×4 (07:57→20:49)
[2021-01-21] MEDS: 0.9 % Sodium Chloride Flush 3 ML SYRINGE IVFLUSH ×2 (07:57→16:40)
[2021-01-21] MEDS: metFORMIN HCl 1,000 MG TABLET 1000 MG PO ×2 (07:57→16:40)
[2021-01-21 08:04] LABS: Estimated Average Glucose 212 mg/dL
[2021-01-21] MEDS: dexAMETHasone sod phosphate 4 MG/ML VIAL 6 MG IVPUSH (09:47)
[2021-01-21] MEDS: oxyCODONE HCl Immed Release 5 MG TABLET PO (09:47)
[2021-01-21] MEDS: Fenofibrate 160 MG TABLET PO (09:47)
[2021-01-21 09:48] VITALS: BP 119/67; PULSE 88
[2021-01-21] MEDS: Gabapentin 100 MG CAPSULE PO ×3 (09:48→20:48)
[2021-01-21] MEDS: Insulin Glargine,Hum.rec.anlog 100 UNIT/ML 10 ML VIAL 30 UNIT SUBCUT ×2 (09:48→21:02)
[2021-01-21 11:24] LABS: Glucose, Whole Blood 276 mg/dL (60-115)
[2021-01-21 11:27] VITALS: BP 126/58; PULSE 93; RESP 20; TEMP 36.6; O2SAT 91
--- NOTE | 2021-01-21 14:03 | HO.PM.IMPN ---
Subjective Subjective Date of Service: 01/21/21 Interval History: states dyspnea slightly improved afebrile no chest pain still on quite a bit of O2- 12L via Oximizer, Review of Systems Gen: no fever Resp: +sob, no cough CV: no chest, no SHOEMAKER, no leg edema GI: No n/v, no abd pain Neuro: No confusion, headache Physical Exam Vital Signs: Vital Signs: Last Vital Signs Temp 97.8 F 01/21/21 11:27 Pulse 93 01/21/21 11:27 Resp 20 01/21/21 11:27 BP 126/58 L 01/21/21 11:27 Pulse Ox 91 L 01/21/21 11:27 Body Mass Index 32.3 Gen: mild dyspnea HEENT: sclera anicteric, moist mucus membranes Neck: supple Lungs: auscultation deferred due to COVID-19 Heart: normal peripheral pulses Abd: soft, non-tender, non-distended Ext: no cyanosis, clubbing, or edema Skin: warm/well-perfused Neuro: alert and oriented x3, no focal findings Psych: appropriate affe Objective Data Current Medications Generic Name Dose Route Start Last Admin Trade Name Freq PRN Reason Stop Dose Admin Acetaminophen 650 mg 01/12/21 16:52 01/13/21 16:54 Acetaminophen 325 Mg Tablet PO 650 mg Q6H PRN Administration Pain, fever Atorvastatin Calcium 20 mg 01/12/21 21:00 01/20/21 20:53 Atorvastatin Calcium 20 Mg Tablet PO 20 mg BEDTIME [facility] Administration Dexamethasone Sodium Phosphate 6 mg 01/12/21 16:52 01/21/21 09:47 Dexamethasone Sod Phosphate 4 Mg/Ml Vial IVPUSH 6 mg DAILY [facility] Administration Enalapril Maleate 5 mg 01/13/21 09:00 01/21/21 09:48 Enalapril Maleate 5 Mg Tablet PO 5 mg DAILY [facility] Administration Protocol Enoxaparin Sodium 40 mg 01/12/21 20:00 01/20/21 20:53 Enoxaparin Sodium 40 Mg/0.4 Ml Syringe SUBCUT 40 mg Q24H [facility] Administration Fenofibrate 160 mg 01/13/21 09:00 01/21/21 09:47 Fenofibrate 160 Mg Tablet PO 160 mg DAILY [facility]TNA Administration Gabapentin 100 mg 01/12/21 21:00 01/21/21 09:48 Gabapentin 100 Mg Capsule PO 100 mg TID [facility]TNA Administration Guaifenesin/Dextromethorphan 5 ml 01/19/21 02:43 01/19/21 03:05 Guaifenesin Dm 100/10/5 Ml 5 Ml Syrup PO 5 ml Q6H PRN Administration Cough Insulin Glargine 30 unit 01/20/21 22:00 01/21/21 09:48 Insulin Glargine,Hum.Rec.Anlog 100 Unit/Ml 10 Ml Vial SUBCUT 30 unit Q12H [facility] Administration Insulin Human Lispro 0 unit 01/12/21 16:52 01/21/21 11:55 Insulin Lispro 100 Unit/Ml 3 Ml Vial SUBCUT 6 unit QIDACHS [facility] Administration Protocol Metformin HCl 1,000 mg 01/13/21 08:00 01/21/21 07:57 Metformin Hcl 1,000 Mg Tablet PO 1,000 mg BIDWM [facility]TNA Administration Ondansetron HCl 4 mg 01/14/21 11:20 01/20/21 03:45 Ondansetron Hcl 4 Mg/2 Ml Vial IVPUSH 4 mg Q6H PRN Administration nausea Oxycodone HCl 5 mg 01/18/21 09:43 01/21/21 09:47 Oxycodone Hcl Immed Release 5 Mg Tablet PO 5 mg Q6H PRN Administration Pain, Severe (Pain Scale 7-10) Pharmacy Consult 1 each 01/12/21 15:08 Consult Rx Perform Med Rec MISCELLANE ONCE PRN Consult order Sodium Chloride 3 ml 01/13/21 00:00 01/21/21 07:57 0.9 % Sodium Chloride Flush 3 Ml Syringe IVFLUSH 3 ml QSHIFT [facility] Administration Labs CBC & Chem 7: 01/21/21 05:36 01/21/21 05:36 Assessment and Plan (1) Acute respiratory failure with hypoxia: Status: Acute (2) Pneumonia due to COVID-19 virus: Status: Acute Assessment and Plan: hospital d#10 40yo with DM2, obesity admitted for hypoxia from COVID-19 pneumonia # acute hypoxic respiratory failure - encouraged awake proning, wean O2 as tolerated # COVID-19 pneumonia becoming long hauler - dexamethasone d#08/04, recheck labs tomorrow # DM2 in obese patient with proteinuria - increase glargine, continue lispro, continue MTF - continue FREEDOM-I # HLD - continue statin # VTE ppx - LMWH
--- NOTE | 2021-01-21 14:53 | MHC.CLN ---
F/U 75% AVG PO INTAKE DIET RX: 1800DM-APPROPRIATE FOLLOWING
--- NOTE | 2021-01-21 15:02 | MHC.CM.PN ---
DP Female 40 dx FLU @ discharge, the patient will go home, no services. Family will provide transportation.. CM will follow.
[2021-01-21 15:40] VITALS: BP 118/70; PULSE 84; RESP 17; TEMP 35.9; O2SAT 93
[2021-01-21 16:00] LABS: Glucose, Whole Blood 295 mg/dL (60-115)
[2021-01-21 20:00] VITALS: BP 111/68; PULSE 81; RESP 18; TEMP 35.9; O2SAT 97
[2021-01-21 20:39] LABS: Glucose, Whole Blood 235 mg/dL (60-115)
[2021-01-21] MEDS: Atorvastatin Calcium 20 MG TABLET PO (20:48)
[2021-01-21] MEDS: Enoxaparin Sodium 40 MG/0.4 ML SYRINGE SUBCUT (20:48)
[2021-01-21] MEDS: guaiFENesin DM 100/10/5 ML 5 ML SYRUP PO (22:40)
[2021-01-22] VITALS (8 sets, daily range): BP systolic 105–131; BP diastolic 58–74; PULSE 77–86; RESP 18–20; TEMP 36–37.1; O2SAT 92–99
[2021-01-22 07:18] LABS: Glucose, Whole Blood 249 mg/dL (60-115)
[2021-01-22] MEDS: Insulin Lispro 100 UNIT/ML 3 ML VIAL SUBCUT ×4 (08:12→21:27)
[2021-01-22] MEDS: Gabapentin 100 MG CAPSULE PO ×3 (08:13→21:28)
[2021-01-22] MEDS: Fenofibrate 160 MG TABLET PO (08:13)
[2021-01-22] MEDS: 0.9 % Sodium Chloride Flush 3 ML SYRINGE IVFLUSH ×3 (08:13→16:42)
[2021-01-22] MEDS: dexAMETHasone sod phosphate 4 MG/ML VIAL 6 MG IVPUSH (08:13)
[2021-01-22] MEDS: metFORMIN HCl 1,000 MG TABLET 1000 MG PO ×2 (08:13→16:38)
[2021-01-22] MEDS: Insulin Glargine,Hum.rec.anlog 100 UNIT/ML 10 ML VIAL 30 UNIT SUBCUT ×2 (10:12→21:28)
[2021-01-22] MEDS: guaiFENesin DM 100/10/5 ML 5 ML SYRUP PO ×2 (10:12→21:28)
[2021-01-22 11:11] LABS: Glucose, Whole Blood 282 mg/dL (60-115)
--- NOTE | 2021-01-22 15:17 | PM.CNPUL ---
History of Present Illness History of Present Illness Consult date: 01/22/21 Reason for consult: hypoxemia Chief complaint: FLU SYMPTOMS Narrative: 40-year-old lady, nonsmoker, with underlying history of diabetes mellitus and hyperlipidemia admitted on 01/12/2021 with 10 day history of progressive dyspnea, COVID-19 positive on 01/08/2021. Patient has been treated with dexamethasone and her hospital course has been significant for high FiO2 requirements at approximately 10-14 L Oxymizer cannula. Review of Systems Constitutional: Constitutional: Denies daytime sleepiness, Denies excessive sweating, Denies fatigue, Denies fever(s), Denies lethargy, Denies malaise, Denies night sweats, Denies snoring and Denies weight loss Eyes: Eyes: Denies blurry vision and Denies itchy eyes ENT: Denies nasal congestion, Denies post nasal drip, Denies sinus pain, Denies sinus pressure and Denies other ( Thrush) Cardiovascular: Cardiovascular: Denies chest pain, Denies pedal edema, Reports dyspnea, Denies orthopnea and Denies paroxysmal nocturnal dyspnea Respiratory: Respiratory: Reports cough, Denies hemoptysis, Denies excessive phlegm production, Reports dyspnea, Denies snoring and Denies wheezing Gastrointestinal: Gastrointestinal: Denies abdominal pain and Denies heartburn Musculoskeletal: Musculoskeletal: Denies myalgias, Denies arthralgias and Denies joint swelling Integumentary/Breasts: Skin/Breast: Denies rash Neurologic: Denies memory loss and Denies seizure-like activity Psychiatric: Psychiatric: Denies abnormal sleep pattern, Denies anxiety and Denies memory loss Endocrine: Endocrine: Denies excessive sweating, Denies fatigue and Denies heat intolerance Hematologic/Lymphatic: Hematologic/Lymphatic: Denies easy bruising Allergic/Immunologic: Allergic/Immunologic: Denies itchy eyes, Denies seasonal rhinorrhea and Denies wheezing PMFSH Past Medical History Medical History Diabetes Hyperlipidemia Proteinuria Family History Family history: reviewed and not pertinent Surgical History Surgical History History of History of knee surgery History of shoulder surgery Hx of breast reduction, elective Social History Social History Household Members: Family Housing: Other Housing Other:: fdc Do you presently have visiting nurse or other home services: No Alcohol intake: never Smoking Status: Never smoker Smoked in Last 30 Days: No Use of substances other than those prescribed or required for medical reasons: No Currently Displaying Signs/Symptoms of Drug Intoxication Withdrawal: No Have you been hit, kicked, punched, or otherwise hurt by someone within the past year? If so, by whom?: No Do you feel safe in your current relationship?: No Current Relationship Is there a partner from a previous relationship who is making you feel unsafe now?: No Are you made to feel afraid or neglected: No Advance Directives: Yes Advance Directives Information Provided: No Advance Directives on File: No Advance Directives Date on File: 01/12/21 Do you have thoughts of harming others: None Do you have a plan to hurt others: No Plan Recently lost weight without trying: No service: No Current occupational status: disabled Meds Allergies Allergy/AdvReac Type Severity Reaction Status Date / Time narco Allergy Unknown Uncoded 01/12/21 11:55 Active Medications: Current Medications Generic Name Dose Route Start Last Admin Trade Name Freq PRN Reason Stop Dose Admin Acetaminophen 650 mg 01/12/21 16:52 01/13/21 16:54 Acetaminophen 325 Mg Tablet PO 650 mg Q6H PRN Administration Pain, fever Atorvastatin Calcium 20 mg 01/12/21 21:00 01/21/21 20:48 Atorvastatin Calcium 20 Mg Tablet PO 20 mg BEDTIME CHETNA Administration Dexamethasone Sodium Phosphate 6 mg 01/12/21 16:52 01/22/21 08:13 Dexamethasone Sod Phosphate 4 Mg/Ml Vial IVPUSH 6 mg DAILY CHETNA Administration Enalapril Maleate 5 mg 01/13/21 09:00 01/22/21 08:13 Enalapril Maleate 5 Mg Tablet PO 5 mg DAILY CHETNA Administration Protocol Enoxaparin Sodium 40 mg 01/12/21 20:00 01/21/21 20:48 Enoxaparin Sodium 40 Mg/0.4 Ml Syringe SUBCUT 40 mg Q24H CHETNA Administration Fenofibrate 160 mg 01/13/21 09:00 01/22/21 08:13 Fenofibrate 160 Mg Tablet PO 160 mg DAILY CHETNA Administration Gabapentin 100 mg 01/12/21 21:00 01/22/21 08:13 Gabapentin 100 Mg Capsule PO 100 mg TID CHETNA Administration Guaifenesin/Dextromethorphan 5 ml 01/19/21 02:43 01/22/21 10:12 Guaifenesin Dm 100/10/5 Ml 5 Ml Syrup PO 5 ml Q6H PRN Administration Cough Insulin Glargine 30 unit 01/20/21 22:00 01/22/21 10:12 Insulin Glargine,Hum.Rec.Anlog 100 Unit/Ml 10 Ml Vial SUBCUT 30 unit Q12H CHETNA Administration Insulin Human Lispro 0 unit 01/12/21 16:52 01/22/21 11:49 Insulin Lispro 100 Unit/Ml 3 Ml Vial SUBCUT 6 unit QIDACHS CHETNA Administration Protocol Metformin HCl 1,000 mg 01/13/21 08:00 01/22/21 08:13 Metformin Hcl 1,000 Mg Tablet PO 1,000 mg BIDWM CHETNA Administration Ondansetron HCl 4 mg 01/14/21 11:20 01/20/21 03:45 Ondansetron Hcl 4 Mg/2 Ml Vial IVPUSH 4 mg Q6H PRN Administration nausea Oxycodone HCl 5 mg 01/18/21 09:43 01/21/21 09:47 Oxycodone Hcl Immed Release 5 Mg Tablet PO 5 mg Q6H PRN Administration Pain, Severe (Pain Scale 7-10) Pharmacy Consult 1 each 01/12/21 15:08 Consult Rx Perform Med Rec MISCELLANE ONCE PRN Consult order Sodium Chloride 3 ml 01/13/21 00:00 01/22/21 08:13 0.9 % Sodium Chloride Flush 3 Ml Syringe IVFLUSH 3 ml QSHIFT [facility] Administration Home Medications Medication Instructions Recorded Confirmed Last Taken Type atorvastatin 20 mg PO BEDTIME 01/12/21 01/12/21 1 Day Ago History ~01/11/21 enalapril maleate 10 mg PO DAILY 01/12/21 01/12/21 1 Day Ago History ~01/11/21 fenofibrate 160 mg PO DAILY 01/12/21 01/12/21 Unknown History insulin degludec [Tresiba 50 unit SUBCUT BID 01/12/21 01/12/21 2 Days Ago History FlexTouch U-100] ~01/10/21 Physical Exam Vital Signs: Vital Signs: Last Vital Signs Temp 96.8 F 01/22/21 15:15 Pulse 80 01/22/21 15:15 Resp 20 01/22/21 15:15 BP 105/65 01/22/21 15:15 Pulse Ox 98 01/22/21 15:15 Body Mass Index 32.3 Const: General: no acute distress, alert and awake Eyes: Sclerae: sclerae normal EOM: EOMs intact bilaterally Neck: Neck: Yes no lymphadenopathy, Yes trachea midline and Yes supple Resp: Effort & Inspection: normal respiratory effort and no respiratory distress Auscultation: crackles (Diffuse bilateral) Cardio: Rate: regular rate Rhythm: regular rhythm Heart sounds: no gallops, no murmurs and no rubs GI: Palpation (GI): Soft to palpation and Other GI palpation findings present ( Nontender) Auscultation: normal bowel sounds Extrem: General: Yes no pedal edema, No clubbing and No cyanosis Results Laboratory Findings CBC and BMP: 01/21/21 05:36 01/21/21 05:36 Abnormal lab findings: Abnormal Labs 01/12/21 01/12/21 01/12/21 12:56 16:16 16:16 WBC RBC 3.19 L Hgb 9.6 L Hct 28.5 L Plt Count 142 L Immature Gran % (Auto) 0.7 H Neut % (Auto) Lymph % (Auto) Lymph # (Auto) 1.1 L Abs Immat Gran (auto) 0.04 H Potassium BUN 17 H POC Glucose Random Glucose 146 H Fasting Glucose Calcium 7.9 L Ferritin AST Lactate Dehydrogenase C-Reactive Protein Total Protein Albumin COVID-19 (KESHIA) Positive A 01/12/21 01/12/21 01/12/21 17:43 21:55 22:10 WBC RBC Hgb Hct Plt Count Immature Gran % (Auto) Neut % (Auto) Lymph % (Auto) Lymph # (Auto) Abs Immat Gran (auto) Potassium 5.2 H BUN 20 H POC Glucose 180 H 344 H Random Glucose 396 H* Fasting Glucose Calcium 7.8 L Ferritin AST 69 H Lactate Dehydrogenase C-Reactive Protein Total Protein 6.1 L Albumin 3.1 L COVID-19 (KESHIA) 01/13/21 01/13/21 01/13/21 06:14 06:14 07:09 WBC 4.6 L RBC 3.41 L Hgb 10.3 L Hct 30.5 L Plt Count Immature Gran % (Auto) 1.1 H Neut % (Auto) Lymph % (Auto) 19.9 L Lymph # (Auto) 0.9 L Abs Immat Gran (auto) 0.05 H Potassium 5.3 H BUN 21 H POC Glucose 233 H Random Glucose 290 H Fasting Glucose Calcium 8.0 L Ferritin AST Lactate Dehydrogenase C-Reactive Protein Total Protein Albumin COVID-19 (KESHIA) 01/13/21 01/13/21 01/13/21 11:13 16:10 20:19 WBC RBC Hgb Hct Plt Count Immature Gran % (Auto) Neut % (Auto) Lymph % (Auto) Lymph # (Auto) Abs Immat Gran (auto) Potassium BUN POC Glucose 275 H 294 H 285 H Random Glucose Fasting Glucose Calcium Ferritin AST Lactate Dehydrogenase C-Reactive Protein Total Protein Albumin COVID-19 (KESHIA) 01/14/21 01/14/21 01/14/21 07:45 11:37 16:15 WBC RBC Hgb Hct Plt Count Immature Gran % (Auto) Neut % (Auto) Lymph % (Auto) Lymph # (Auto) Abs Immat Gran (auto) Potassium BUN POC Glucose 214 H 210 H 225 H Random Glucose Fasting Glucose Calcium Ferritin AST Lactate Dehydrogenase C-Reactive Protein Total Protein Albumin COVID-19 (KESHIA) 01/14/21 01/15/21 01/15/21 20:00 05:46 05:46 WBC RBC 3.31 L Hgb 9.8 L Hct 29.9 L Plt Count Immature Gran % (Auto) 2.1 H Neut % (Auto) 75.0 H Lymph % (Auto) 15.0 L Lymph # (Auto) Abs Immat Gran (auto) 0.21 H Potassium BUN 21 H POC Glucose 196 H Random Glucose Fasting Glucose 166 H Calcium 8.0 L Ferritin AST Lactate Dehydrogenase C-Reactive Protein Total Protein Albumin COVID-19 ([facility]ESHIA) 01/15/21 01/15/21 01/15/21 07:07 11:03 16:10 WBC RBC Hgb Hct Plt Count Immature Gran % (Auto) Neut % (Auto) Lymph % (Auto) Lymph # (Auto) Abs Immat Gran (auto) Potassium BUN POC Glucose 153 H 220 H 243 H Random Glucose Fasting Glucose Calcium Ferritin AST Lactate Dehydrogenase C-Reactive Protein Total Protein Albumin COVID-19 (KESHIA) 03/01/16/21 01/16/21 20:24 07:24 11:18 WBC RBC Hgb Hct Plt Count Immature Gran % (Auto) Neut % (Auto) Lymph % (Auto) Lymph # (Auto) Abs Immat Gran (auto) Potassium BUN POC Glucose 186 H 134 H 210 H Random Glucose Fasting Glucose Calcium Ferritin AST Lactate Dehydrogenase C-Reactive Protein Total Protein Albumin COVID-19 ([facility]ESHIA) 01/16/21 01/16/21 01/17/21 16:12 20:24 07:16 WBC RBC Hgb Hct Plt Count Immature Gran % (Auto) Neut % (Auto) Lymph % (Auto) Lymph # (Auto) Abs Immat Gran (auto) Potassium BUN POC Glucose 241 H 168 H 119 H Random Glucose Fasting Glucose Calcium Ferritin AST Lactate Dehydrogenase C-Reactive Protein Total Protein Albumin COVID-19 ([facility]ESHIA) 01/17/21 01/17/21 01/18/21 10:59 15:58 07:16 WBC RBC Hgb Hct Plt Count Immature Gran % (Auto) Neut % (Auto) Lymph % (Auto) Lymph # (Auto) Abs Immat Gran (auto) Potassium BUN POC Glucose 204 H 211 H 124 H Random Glucose Fasting Glucose Calcium Ferritin AST Lactate Dehydrogenase C-Reactive Protein Total Protein Albumin COVID-19 (KESHIA) 01/18/21 01/18/21 01/18/21 11:13 17:58 19:56 WBC RBC Hgb Hct Plt Count Immature Gran % (Auto) Neut % (Auto) Lymph % (Auto) Lymph # (Auto) Abs Immat Gran (auto) Potassium BUN POC Glucose 245 H 248 H 259 H Random Glucose Fasting Glucose Calcium Ferritin AST Lactate Dehydrogenase C-Reactive Protein Total Protein Albumin COVID-19 (KESHIA) 01/19/21 01/19/21 01/19/21 07:36 11:11 15:56 WBC RBC Hgb Hct Plt Count Immature Gran % (Auto) Neut % (Auto) Lymph % (Auto) Lymph # (Auto) Abs Immat Gran (auto) Potassium BUN POC Glucose 233 H 265 H 341 H Random Glucose Fasting Glucose Calcium Ferritin AST Lactate Dehydrogenase C-Reactive Protein Total Protein Albumin COVID-19 (KESHIA) 01/19/21 01/20/21 01/20/21 19:50 07:18 11:09 WBC RBC Hgb Hct Plt Count Immature Gran % (Auto) Neut % (Auto) Lymph % (Auto) Lymph # (Auto) Abs Immat Gran (auto) Potassium BUN POC Glucose 248 H 233 H 324 H Random Glucose Fasting Glucose Calcium Ferritin AST Lactate Dehydrogenase C-Reactive Protein Total Protein Albumin COVID-19 (KESHIA) 01/20/21 01/20/21 01/21/21 15:59 20:11 05:36 WBC RBC 3.34 L Hgb 9.9 L Hct 29.6 L Plt Count 433 H D Immature Gran % (Auto) 4.8 H Neut % (Auto) Lymph % (Auto) Lymph # (Auto) Abs Immat Gran (auto) 0.51 H Potassium BUN POC Glucose 321 H 222 H Random Glucose Fasting Glucose Calcium Ferritin AST Lactate Dehydrogenase C-Reactive Protein Total Protein Albumin COVID-19 (KESHIA) 01/21/21 01/21/21 01/21/21 05:36 07:04 11:15 WBC RBC Hgb Hct Plt Count Immature Gran % (Auto) Neut % (Auto) Lymph % (Auto) Lymph # (Auto) Abs Immat Gran (auto) Potassium BUN 21 H POC Glucose 209 H 276 H Random Glucose 214 H Fasting Glucose Calcium Ferritin 555 H AST Lactate Dehydrogenase 260 H C-Reactive Protein 6.68 H Total Protein 6.1 L Albumin 2.8 L COVID-19 (KESHIA) 01/21/21 01/21/21 01/22/21 15:55 20:35 07:15 WBC RBC Hgb Hct Plt Count Immature Gran % (Auto) Neut % (Auto) Lymph % (Auto) Lymph # (Auto) Abs Immat Gran (auto) Potassium BUN POC Glucose 295 H 235 H 249 H Random Glucose Fasting Glucose Calcium Ferritin AST Lactate Dehydrogenase C-Reactive Protein Total Protein Albumin COVID-19 (KESHIA) 01/22/21 11:07 WBC RBC Hgb Hct Plt Count Immature Gran % (Auto) Neut % (Auto) Lymph % (Auto) Lymph # (Auto) Abs Immat Gran (auto) Potassium BUN POC Glucose 282 H Random Glucose Fasting Glucose Calcium Ferritin AST Lactate Dehydrogenase C-Reactive Protein Total Protein Albumin COVID-19 (KESHIA) Assessment and Plan (1) Acute respiratory failure with hypoxia: Status: Acute Impression: COVID-19 related pneumonia and acute hypoxic respiratory failure treated with 10 day course of dexamethasone, recovering slowly. Recommendation: Continue to titrate off supplemental oxygen as tolerated. Will repeat chest x-ray. (2) Pneumonia due to COVID-19 virus: Status: Acute
--- NOTE | 2021-01-22 15:54 | HO.PM.IMPN ---
Subjective Subjective Date of Service: 01/23/21 Interval History: covid pneumonia Review of Systems Shortness of breath as per patient seems slightly improving but she still desats intermittently Denies any chest pain Has some cough. Physical Exam Vital Signs: Vital Signs: Last Vital Signs Temp 96.8 F 01/22/21 15:15 Pulse 80 01/22/21 15:15 Resp 20 01/22/21 15:15 BP 105/65 01/22/21 15:15 Pulse Ox 98 01/22/21 15:15 Body Mass Index 32.3 Physical exam: Constitutional:not in acute distress. Cvs: rrr, [id number] , no murmur res:air entry diminshed at bases , no wheezing or rhonchii. abd: no rebound or guarding ,nt, bs present. ext pulses present , no cyanosis neuro: axo3 , nonfocal. Objective Data Current Medications Generic Name Dose Route Start Last Admin Trade Name Freq PRN Reason Stop Dose Admin Acetaminophen 650 mg 01/12/21 16:52 01/13/21 16:54 Acetaminophen 325 Mg Tablet PO 650 mg Q6H PRN Administration Pain, fever Atorvastatin Calcium 20 mg 01/12/21 21:00 01/21/21 20:48 Atorvastatin Calcium 20 Mg Tablet PO 20 mg BEDTIME CHETNA Administration Dexamethasone Sodium Phosphate 6 mg 01/12/21 16:52 01/22/21 08:13 Dexamethasone Sod Phosphate 4 Mg/Ml Vial IVPUSH 6 mg DAILY CHETNA Administration Enalapril Maleate 5 mg 01/13/21 09:00 01/22/21 08:13 Enalapril Maleate 5 Mg Tablet PO 5 mg DAILY CHETNA Administration Protocol Enoxaparin Sodium 40 mg 01/12/21 20:00 01/21/21 20:48 Enoxaparin Sodium 40 Mg/0.4 Ml Syringe SUBCUT 40 mg Q24H CHETNA Administration Fenofibrate 160 mg 01/13/21 09:00 01/22/21 08:13 Fenofibrate 160 Mg Tablet PO 160 mg DAILY CHETNA Administration Gabapentin 100 mg 01/12/21 21:00 01/22/21 08:13 Gabapentin 100 Mg Capsule PO 100 mg TID CHETNA Administration Guaifenesin/Dextromethorphan 5 ml 01/19/21 02:43 01/22/21 10:12 Guaifenesin Dm 100/10/5 Ml 5 Ml Syrup PO 5 ml Q6H PRN Administration Cough Insulin Glargine 30 unit 01/20/21 22:00 01/22/21 10:12 Insulin Glargine,Hum.Rec.Anlog 100 Unit/Ml 10 Ml Vial SUBCUT 30 unit Q12H CHETNA Administration Insulin Human Lispro 0 unit 01/12/21 16:52 01/22/21 11:49 Insulin Lispro 100 Unit/Ml 3 Ml Vial SUBCUT 6 unit QIDACHS [facility] Administration Protocol Metformin HCl 1,000 mg 01/13/21 08:00 01/22/21 08:13 Metformin Hcl 1,000 Mg Tablet PO 1,000 mg BIDWM CHETNA Administration Ondansetron HCl 4 mg 01/14/21 11:20 01/20/21 03:45 Ondansetron Hcl 4 Mg/2 Ml Vial IVPUSH 4 mg Q6H PRN Administration nausea Oxycodone HCl 5 mg 01/18/21 09:43 01/21/21 09:47 Oxycodone Hcl Immed Release 5 Mg Tablet PO 5 mg Q6H PRN Administration Pain, Severe (Pain Scale 7-10) Pharmacy Consult 1 each 01/12/21 15:08 Consult Rx Perform Med Rec MISCELLANE ONCE PRN Consult order Sodium Chloride 3 ml 01/13/21 00:00 01/22/21 08:13 0.9 % Sodium Chloride Flush 3 Ml Syringe IVFLUSH 3 ml QSHIFT [facility] Administration Labs CBC & Chem 7: 01/21/21 05:36 01/23/21 09:35 Assessment and Plan (1) Acute respiratory failure with hypoxia: Status: Acute (2) Pneumonia due to COVID-19 virus: Status: Acute Assessment and Plan: hospital d#10 40yo with DM2, obesity admitted for hypoxia from COVID-19 pneumonia 1.acute hypoxic respiratory failure - encouraged awake proning, wean O2 as tolerated. 2. COVID-19 pneumonia becoming long hauler dexamethasone today 08/04, recheck labs tomorrow 3.DM2 in obese patient with proteinuria:uncontrolled fs 150-200's range adjusted glargine, continue lispro, continue MTF 4. Hyperkalemia :added kayxelate,hold FREEDOM-I. will recheck potassium levels 5. HLD- continue statin # VTE ppx - LMWH
[2021-01-22 16:10] LABS: Glucose, Whole Blood 258 mg/dL (60-115)
[2021-01-22 20:14] LABS: Glucose, Whole Blood 219 mg/dL (60-115)
[2021-01-22] MEDS: Atorvastatin Calcium 20 MG TABLET PO (21:28)
[2021-01-22] MEDS: Enoxaparin Sodium 40 MG/0.4 ML SYRINGE SUBCUT (21:28)
[2021-01-23] MEDS: 0.9 % Sodium Chloride Flush 3 ML SYRINGE IVFLUSH ×4 (00:24→23:59)
[2021-01-23 03:57] VITALS: BP 122/73; PULSE 83; RESP 17; TEMP 37; O2SAT 98
[2021-01-23 07:08] LABS: Glucose, Whole Blood 185 mg/dL (60-115)
[2021-01-23 07:21] VITALS: BP 111/66; PULSE 80; RESP 20; TEMP 37.1; O2SAT 96
[2021-01-23] MEDS: oxyCODONE HCl Immed Release 5 MG TABLET PO ×2 (07:29→13:49)
[2021-01-23] MEDS: Insulin Glargine,Hum.rec.anlog 100 UNIT/ML 10 ML VIAL 30 UNIT SUBCUT (07:30)
[2021-01-23] MEDS: dexAMETHasone sod phosphate 4 MG/ML VIAL 6 MG IVPUSH (07:30)
[2021-01-23] MEDS: Insulin Lispro 100 UNIT/ML 3 ML VIAL SUBCUT ×4 (07:30→20:40)
[2021-01-23] MEDS: Gabapentin 100 MG CAPSULE PO ×3 (07:30→20:39)
[2021-01-23] MEDS: metFORMIN HCl 1,000 MG TABLET 1000 MG PO ×2 (07:30→16:38)
[2021-01-23] MEDS: Fenofibrate 160 MG TABLET PO (07:31)
[2021-01-23 10:43] LABS: Anion Gap 16 (12-20); Blood Urea Nitrogen 21 mg/dL (9-16); C Reactive Protein 2.23 mg/dL (< or = 0.50); Calcium 8.6 mg/dL (8.4-10.2); Carbon Dioxide 25 mmol/L (22-29); Chloride 101 mmol/L (96-108); Creatinine Clr Calc Pharmacy 106.7; Estimated Glomerular Filt Rate > 60; Glucose Random 315 mg/dL (60-115); Lactate Dehydrogenase 211 U/L (122-220); Potassium 5.9 mmol/L (3.3-5.1); Sodium 136 mmol/L (135-145)
[2021-01-23 10:44] LABS: Ferritin 624 ng/mL (10-250)
[2021-01-23 11:40] LABS: Glucose, Whole Blood 272 mg/dL (60-115)
[2021-01-23 11:42] VITALS: BP 109/76; PULSE 77; RESP 20; TEMP 36.7; O2SAT 100
[2021-01-23] MEDS: Sodium Polystyrene Sulfon/Sorb 15 GM/60 ML ORAL.SUSP 30 GM PO ×2 (13:05→19:26)
[2021-01-23] MEDS: guaiFENesin DM 100/10/5 ML 5 ML SYRUP PO (13:49)
[2021-01-23 15:05] VITALS: BP 121/76; PULSE 80; RESP 20; TEMP 36; O2SAT 98
--- NOTE | 2021-01-23 15:35 | MHC.CM.PN ---
DP Female 40 DX Covid+ discharge plan is home no services family transport. CM will follow to assess for change in discharge needs.
[2021-01-23 15:52] LABS: Glucose, Whole Blood 213 mg/dL (60-115)
[2021-01-23 16:58] LABS: Potassium 5.5 mmol/L (3.3-5.1)
[2021-01-23 19:08] VITALS: BP 119/67; PULSE 100; RESP 20; TEMP 36.4; O2SAT 100
[2021-01-23] MEDS: Enoxaparin Sodium 40 MG/0.4 ML SYRINGE SUBCUT (19:26)
[2021-01-23 19:59] LABS: Glucose, Whole Blood 185 mg/dL (60-115)
[2021-01-23] MEDS: Atorvastatin Calcium 20 MG TABLET PO (20:39)
[2021-01-23] MEDS: Insulin Glargine,Hum.rec.anlog 100 UNIT/ML 10 ML VIAL 35 UNIT SUBCUT (22:41)
[2021-01-24] VITALS: BP 102/59; PULSE 89; RESP 16; TEMP 37.1; O2SAT 100
[2021-01-24 04:00] VITALS: BP 112/70; PULSE 86; RESP 16; TEMP 36.3; O2SAT 99
[2021-01-24 06:28] LABS: Hematocrit 29.8 % (37-47); Hemoglobin 9.9 g/dl (12.0-16.0); Mean Corpuscular HGB Conc 33.2 g/dl (31.0-35.0); Mean Corpuscular Hemoglobin 29.1 pg (27.0-33.0); Mean Corpuscular Volume 87.6 fL (80-98); Platelet Count 408 X10*3/uL (160-400); Red Cell Distribution Width 12.8 % (11.0-16.0); White Blood Count 10.1 X10*3/uL (4.8-10.8)
[2021-01-24 07:25] LABS: Anion Gap 12 (12-20); Blood Urea Nitrogen 16 mg/dL (9-16); Calcium 7.9 mg/dL (8.4-10.2); Carbon Dioxide 23 mmol/L (22-29); Chloride 104 mmol/L (96-108); Creatinine Clr Calc Pharmacy 130.8; Estimated Glomerular Filt Rate > 60; Glucose Random 210 mg/dL (60-115); Potassium 4.3 mmol/L (3.3-5.1); Sodium 135 mmol/L (135-145)
[2021-01-24 07:35] LABS: Glucose, Whole Blood 199 mg/dL (60-115)
[2021-01-24 07:41] VITALS: BP 109/64; PULSE 95; RESP 26; TEMP 36.1; O2SAT 99
[2021-01-24] MEDS: Insulin Lispro 100 UNIT/ML 3 ML VIAL SUBCUT ×4 (08:38→20:54)
[2021-01-24] MEDS: metFORMIN HCl 1,000 MG TABLET 1000 MG PO ×2 (08:39→16:58)
[2021-01-24] MEDS: dexAMETHasone sod phosphate 4 MG/ML VIAL 6 MG IVPUSH (08:39)
[2021-01-24] MEDS: guaiFENesin DM 100/10/5 ML 5 ML SYRUP PO ×3 (08:39→21:07)
[2021-01-24] MEDS: Gabapentin 100 MG CAPSULE PO ×3 (08:39→20:55)
[2021-01-24] MEDS: Fenofibrate 160 MG TABLET PO (08:39)
[2021-01-24] MEDS: Insulin Glargine,Hum.rec.anlog 100 UNIT/ML 10 ML VIAL 35 UNIT SUBCUT ×2 (08:39→20:55)
[2021-01-24] MEDS: 0.9 % Sodium Chloride Flush 3 ML SYRINGE IVFLUSH ×3 (08:40→23:48)
[2021-01-24 11:21] LABS: Glucose, Whole Blood 326 mg/dL (60-115)
[2021-01-24 11:39] VITALS: BP 112/64; PULSE 82; RESP 21; TEMP 36; O2SAT 100
--- NOTE | 2021-01-24 14:44 | HO.PM.IMPN ---
Subjective Subjective Date of Service: 01/24/21 Interval History: sob improving Cardiovascular Cardiovascular: Reports no additional cardiovascular complaints Gastrointestinal Gastrointestinal: Reports no additional gastrointestinal complaints Physical Exam Vital Signs: Vital Signs: Last Vital Signs Temp 96.8 F 01/24/21 11:39 Pulse 82 01/24/21 11:39 Resp 21 H 01/24/21 11:39 BP 112/64 01/24/21 11:39 Pulse Ox 100 01/24/21 11:39 Body Mass Index 32.3 General: AO X 3, no acute distress Resp: CTA bilateral CVS: S1,S2,RRR GI: soft, non tender, non distended Neuro: motor grossly intact Psych: appropriate affect Objective Data Current Medications Generic Name Dose Route Start Last Admin Trade Name Freq PRN Reason Stop Dose Admin Acetaminophen 650 mg 01/12/21 16:52 01/13/21 16:54 Acetaminophen 325 Mg Tablet PO 650 mg Q6H PRN Administration Pain, fever Atorvastatin Calcium 20 mg 01/12/21 21:00 01/23/21 20:39 Atorvastatin Calcium 20 Mg Tablet PO 20 mg BEDTIME CHETNA Administration Dexamethasone Sodium Phosphate 6 mg 01/12/21 16:52 01/24/21 08:39 Dexamethasone Sod Phosphate 4 Mg/Ml Vial IVPUSH 6 mg DAILY CHETNA Administration Enalapril Maleate 5 mg 01/13/21 09:00 01/23/21 07:31 Enalapril Maleate 5 Mg Tablet PO 5 mg DAILY CHETNA Administration Protocol Enoxaparin Sodium 40 mg 01/12/21 20:00 01/23/21 19:26 Enoxaparin Sodium 40 Mg/0.4 Ml Syringe SUBCUT 40 mg Q24H CHETNA Administration Fenofibrate 160 mg 01/13/21 09:00 01/24/21 08:39 Fenofibrate 160 Mg Tablet PO 160 mg DAILY CHETNA Administration Gabapentin 100 mg 01/12/21 21:00 01/24/21 14:32 Gabapentin 100 Mg Capsule PO 100 mg TID CHETNA Administration Guaifenesin/Dextromethorphan 5 ml 01/19/21 02:43 01/24/21 14:32 Guaifenesin Dm 100/10/5 Ml 5 Ml Syrup PO 5 ml Q6H PRN Administration Cough Insulin Glargine 35 unit 01/23/21 21:15 01/24/21 08:39 Insulin Glargine,Hum.Rec.Anlog 100 Unit/Ml 10 Ml Vial SUBCUT 35 unit BID CHETNA Administration Insulin Human Lispro 0 unit 01/12/21 16:52 01/24/21 12:27 Insulin Lispro 100 Unit/Ml 3 Ml Vial SUBCUT 8 unit QIDACHS CHETNA Administration Protocol Metformin HCl 1,000 mg 01/13/21 08:00 01/24/21 08:39 Metformin Hcl 1,000 Mg Tablet PO 1,000 mg BIDWM CHETNA Administration Ondansetron HCl 4 mg 01/14/21 11:20 01/20/21 03:45 Ondansetron Hcl 4 Mg/2 Ml Vial IVPUSH 4 mg Q6H PRN Administration nausea Oxycodone HCl 5 mg 01/18/21 09:43 01/23/21 13:49 Oxycodone Hcl Immed Release 5 Mg Tablet PO 5 mg Q6H PRN Administration Pain, Severe (Pain Scale 7-10) Pharmacy Consult 1 each 01/12/21 15:08 Consult Rx Perform Med Rec MISCELLANE ONCE PRN Consult order Sodium Chloride 3 ml 01/13/21 00:00 01/24/21 08:40 0.9 % Sodium Chloride Flush 3 Ml Syringe IVFLUSH 3 ml QSHIFT CHETNA Administration Labs CBC & Chem 7: 01/24/21 05:30 01/24/21 05:30 Assessment and Plan (1) Acute respiratory failure with hypoxia: Status: Acute (2) Pneumonia due to COVID-19 virus: Status: Acute Assessment and Plan: hospital d#11 40yo with DM2, obesity admitted for hypoxia from COVID-19 pneumonia acute hypoxic respiratory failure wean O2 as tolerated. COVID-19 pneumonia becoming long hauler completed decadron 10 days DM2 in obese patient with proteinuria:uncontrolled fs 150-200's range adjusted glargine, continue lispro, continue MTF, hodling parrish-i for hyperkalemia Hyperkalemia resolved with kayexylate, continue to hold parrish-i HLD- continue statin VTE ppx - LMWH
[2021-01-24 15:19] VITALS: BP 119/73; PULSE 90; RESP 19; TEMP 35.8; O2SAT 94
--- NOTE | 2021-01-24 16:24 | MHC.CM.PN ---
DP return to [facility] were she has her own apartment. Uncle will provide transportation.
[2021-01-24 16:32] LABS: Glucose, Whole Blood 296 mg/dL (60-115)
[2021-01-24 19:22] VITALS: BP 115/56; PULSE 85; RESP 19; TEMP 35.8; O2SAT 100
[2021-01-24 20:43] LABS: Glucose, Whole Blood 227 mg/dL (60-115)
[2021-01-24] MEDS: Enoxaparin Sodium 40 MG/0.4 ML SYRINGE SUBCUT (20:53)
[2021-01-24] MEDS: Atorvastatin Calcium 20 MG TABLET PO (20:55)
[2021-01-24] MEDS: oxyCODONE HCl Immed Release 5 MG TABLET PO (21:07)
[2021-01-25] VITALS (9 sets, daily range): BP systolic 104–129; BP diastolic 60–81; PULSE 70–97; RESP 16–24; TEMP 35.8–36.3; O2SAT 76–100
[2021-01-25 06:46] LABS: MANUAL DIFF FLAG NO
[2021-01-25 06:53] LABS: Basophils Percent Auto 0.4 % (0-2); Eosinophils Absolute Auto 0.2 X10*3/uL (0.0-0.4); Eosinophils Percent Auto 1.7 % (0-4); Hematocrit 28.6 % (37-47); Hemoglobin 9.6 g/dl (12.0-16.0); Imm Gran Abs Auto 0.23 X10*3/uL (0.00-0.03); Imm Gran Pct Auto 2.2 % (0.0-0.4); Lymphocytes Absolute Auto 3.1 X10*3/uL (1.2-4.9); Lymphocytes Percent Auto 28.9 % (20-40); Mean Corpuscular HGB Conc 33.6 g/dl (31.0-35.0); Mean Corpuscular Hemoglobin 29.4 pg (27.0-33.0); Mean Corpuscular Volume 87.7 fL (80-98); Mean Platelet Volume 10.1 fL (9.4-12.3); Monocytes Absolute Auto 0.6 X10*3/uL (0.1-1.2); Monocytes Percent Auto 5.6 % (2-11); Neutrophils Absolute Auto 6.5 X10*3/uL (2.0-8.3); Neutrophils Percent Auto 61.2 % (45-73); Platelet Count 384 X10*3/uL (160-400); Red Blood Count 3.26 X10*6/uL (4.20-5.50); Red Cell Distribution Width 12.5 % (11.0-16.0); White Blood Count 10.7 X10*3/uL (4.8-10.8)
[2021-01-25 07:26] LABS: Anion Gap 10 (12-20); Blood Urea Nitrogen 15 mg/dL (9-16); Carbon Dioxide 27 mmol/L (22-29); Chloride 104 mmol/L (96-108); Creatinine Clr Calc Pharmacy 119.3; Estimated Glomerular Filt Rate > 60; Glucose Fasting 252 mg/dL (60-99); Potassium 4.4 mmol/L (3.3-5.1); Sodium 137 mmol/L (135-145)
[2021-01-25 07:29] LABS: Glucose, Whole Blood 226 mg/dL (60-115)
[2021-01-25] MEDS: metFORMIN HCl 1,000 MG TABLET 1000 MG PO ×2 (08:10→16:31)
[2021-01-25] MEDS: Gabapentin 100 MG CAPSULE PO ×3 (08:10→20:46)
[2021-01-25] MEDS: Insulin Glargine,Hum.rec.anlog 100 UNIT/ML 10 ML VIAL 35 UNIT SUBCUT ×2 (08:10→20:44)
[2021-01-25] MEDS: Fenofibrate 160 MG TABLET PO (08:10)
[2021-01-25] MEDS: Insulin Lispro 100 UNIT/ML 3 ML VIAL SUBCUT ×4 (08:10→20:45)
[2021-01-25] MEDS: 0.9 % Sodium Chloride Flush 3 ML SYRINGE IVFLUSH ×3 (08:11→20:46)
[2021-01-25 11:20] LABS: Glucose, Whole Blood 259 mg/dL (60-115)
--- NOTE | 2021-01-25 11:45 | HO.PM.IMPN ---
Subjective Subjective Date of Service: 01/25/21 Interval History: improved Cardiovascular Cardiovascular: Reports no additional cardiovascular complaints Genitourinary Genitourinary: Reports no additional female genitourinary complaints Physical Exam Vital Signs: Vital Signs: Last Vital Signs Temp 96.6 F L 01/25/21 10:48 Pulse 84 01/25/21 10:48 Resp 22 H 01/25/21 10:48 BP 120/71 01/25/21 10:48 Pulse Ox 97 01/25/21 10:48 Body Mass Index 32.3 General: AO X 3, no acute distress Resp: CTA bilateral CVS: S1,S2,RRR GI: soft, non tender, non distended Neuro: motor grossly intact Psych: appropriate affect Objective Data Current Medications Generic Name Dose Route Start Last Admin Trade Name Freq PRN Reason Stop Dose Admin Acetaminophen 650 mg 01/12/21 16:52 01/13/21 16:54 Acetaminophen 325 Mg Tablet PO 650 mg Q6H PRN Administration Pain, fever Atorvastatin Calcium 20 mg 01/12/21 21:00 01/24/21 20:55 Atorvastatin Calcium 20 Mg Tablet PO 20 mg BEDTIME CHETNA Administration Enoxaparin Sodium 40 mg 01/12/21 20:00 01/24/21 20:53 Enoxaparin Sodium 40 Mg/0.4 Ml Syringe SUBCUT 40 mg Q24H CHETNA Administration Fenofibrate 160 mg 01/13/21 09:00 01/25/21 08:10 Fenofibrate 160 Mg Tablet PO 160 mg DAILY CHETNA Administration Gabapentin 100 mg 01/12/21 21:00 01/25/21 08:10 Gabapentin 100 Mg Capsule PO 100 mg TID CHETNA Administration Guaifenesin/Dextromethorphan 5 ml 01/19/21 02:43 01/24/21 21:07 Guaifenesin Dm 100/10/5 Ml 5 Ml Syrup PO 5 ml Q6H PRN Administration Cough Insulin Glargine 35 unit 01/23/21 21:15 01/25/21 08:10 Insulin Glargine,Hum.Rec.Anlog 100 Unit/Ml 10 Ml Vial SUBCUT 35 unit BID CHETNA Administration Insulin Human Lispro 0 unit 01/12/21 16:52 01/25/21 08:10 Insulin Lispro 100 Unit/Ml 3 Ml Vial SUBCUT 4 unit QIDACHS CHETNA Administration Protocol Metformin HCl 1,000 mg 01/13/21 08:00 01/25/21 08:10 Metformin Hcl 1,000 Mg Tablet PO 1,000 mg BIDWM CHETNA Administration Ondansetron HCl 4 mg 01/14/21 11:20 01/20/21 03:45 Ondansetron Hcl 4 Mg/2 Ml Vial IVPUSH 4 mg Q6H PRN Administration nausea Oxycodone HCl 5 mg 01/18/21 09:43 01/24/21 21:07 Oxycodone Hcl Immed Release 5 Mg Tablet PO 5 mg Q6H PRN Administration Pain, Severe (Pain Scale 7-10) Pharmacy Consult 1 each 01/12/21 15:08 Consult Rx Perform Med Rec MISCELLANE ONCE PRN Consult order Sodium Chloride 3 ml 01/13/21 00:00 01/25/21 08:11 0.9 % Sodium Chloride Flush 3 Ml Syringe IVFLUSH 3 ml QSHIFT CHETNA Administration Labs CBC & Chem 7: 01/25/21 05:38 01/25/21 05:38 Assessment and Plan (1) Acute respiratory failure with hypoxia: Status: Acute (2) Pneumonia due to COVID-19 virus: Status: Acute Assessment and Plan: hospital d#11 40yo with DM2, obesity admitted for hypoxia from COVID-19 pneumonia acute hypoxic respiratory failure wean O2 as tolerated. improving COVID-19 pneumonia becoming long hauler completed decadron 10 days DM2 in obese patient with proteinuria:uncontrolled fs 150-200's range adjusted glargine, continue lispro, continue MTF, hodling parrish-i for hyperkalemia Hyperkalemia resolved with kayexylate, continue to hold parrish-i HLD- continue statin VTE ppx - LMWH
--- NOTE | 2021-01-25 11:51 | MHC.CM.PN ---
Patient's goal for dc is to return home to her apartment at the [facility]. O2 weaning continues and CM will continue to follow for possible need to adjust the dc plan.
[2021-01-25 16:05] LABS: Glucose, Whole Blood 202 mg/dL (60-115)
[2021-01-25] MEDS: guaiFENesin DM 100/10/5 ML 5 ML SYRUP PO (18:04)
--- NOTE | 2021-01-25 18:40 | PC.NURSE ---
Patient weaned from 11L on oxymizer to 6L to 4L to 2L then to RA. Patient desaturated after about an hour on RA down to about 76%; back to 2L via NC, hospitalist notified. Patient maintaining O2 in the low 90s.
[2021-01-25 19:55] LABS: Glucose, Whole Blood 220 mg/dL (60-115)
[2021-01-25] MEDS: Enoxaparin Sodium 40 MG/0.4 ML SYRINGE SUBCUT (20:45)
[2021-01-25] MEDS: Atorvastatin Calcium 20 MG TABLET PO (20:46)
[2021-01-26] VITALS (7 sets, daily range): BP systolic 116–127; BP diastolic 61–77; PULSE 72–127; RESP 14–20; TEMP 36.1–36.7; O2SAT 86–118
[2021-01-26] MEDS: guaiFENesin DM 100/10/5 ML 5 ML SYRUP PO ×2 (00:28→08:46)
[2021-01-26 08:00] LABS: Glucose, Whole Blood 114 mg/dL (60-115)
[2021-01-26] MEDS: Insulin Glargine,Hum.rec.anlog 100 UNIT/ML 10 ML VIAL 35 UNIT SUBCUT (08:35)
[2021-01-26] MEDS: Fenofibrate 160 MG TABLET PO (08:35)
[2021-01-26] MEDS: 0.9 % Sodium Chloride Flush 3 ML SYRINGE IVFLUSH (08:35)
[2021-01-26] MEDS: metFORMIN HCl 1,000 MG TABLET 1000 MG PO (08:35)
[2021-01-26] MEDS: Gabapentin 100 MG CAPSULE PO ×2 (08:35→14:50)
[2021-01-26 11:50] LABS: Glucose, Whole Blood 219 mg/dL (60-115)
[2021-01-26] MEDS: Insulin Lispro 100 UNIT/ML 3 ML VIAL SUBCUT (11:51)
[2021-01-26 12:33] LABS: COVID-19 Test Negative (Negative); IDNOW Serial# 9DD0AD1C
--- NOTE | 2021-01-26 13:16 | PM.DS ---
DS: Providers Provider Date of Service: 01/26/21 Date of admission: 01/12/21 16:27 Primary care physician: Unknown Physician Consults: 01/22/21 11:28 Consult to Pulmonology Routine Consulting Provider: Don Burroughs Reason for consultation: acute hypoxemic rspiratory failure /covid Has provider been notified: No DS: Diagnosis Discharge Diagnosis (1) Acute respiratory failure with hypoxia: Status: Acute (2) Pneumonia due to COVID-19 virus: Status: Acute (3) Diabetes: Status: Acute DS: Medications Discharge Medications Home Medications: Home Medications Medication Instructions Recorded Confirmed Tresiba FlexTouch U-100 50 unit SUBCUT BID 01/12/21 01/12/21 atorvastatin 20 mg PO BEDTIME 01/12/21 01/12/21 enalapril maleate 10 mg PO DAILY 01/12/21 01/12/21 fenofibrate 160 mg PO DAILY 01/12/21 01/12/21 DS: Summary Hospital Course Hospital Course: Patient was admitted for acute hypoxic respiratory failure due to COVID pneumonia. She was treated with 10 day course of IV dexamethasone. She did require high-flow nasal cannula. But eventually hypoxia improved. Patient's symptoms improved and she was able to be weaned down to room air at rest. Patient still gets hypoxic on ambulation and will require 2 L at discharge while walking. Course was complicated by diabetes with hyperglycemia, likely due to steroid use and acute illness, insulin was adjusted accordingly, and other patient has improved he should be able to go back on her regular medications. Patient is feeling much better will be discharged home. Time Spent with Patient Time attestation: Total time spent providing and/or coordinating discharge services: Discharge coordination time: Greater than 30 minutes Physical Exam Vital Signs: Vital Signs: Last Vital Signs Temp 97.4 F 01/26/21 12:00 Pulse 90 01/26/21 12:00 Resp 18 01/26/21 12:00 BP 118/61 01/26/21 12:00 Pulse Ox 94 01/26/21 12:00 Body Mass Index 32.3 General: AO X 3, no acute distress Resp: CTA bilateral CVS: S1,S2,RRR GI: soft, non tender, non distended Neuro: motor grossly intact Psych: appropriate affect DS: Data Data Completed and Pending Labs on day of discharge: Laboratory Results - last 24 hr 01/25/21 01/25/21 01/26/21 15:59 19:51 07:47 POC Glucose 202 H 220 H 114 COVID-19 ([facility]) COVID-19 Clin Com 01/26/21 01/26/21 11:46 12:10 POC Glucose 219 H COVID-19 ([facility]) Negative COVID-19 Clin Com See Note Discharge Plan Discharge Patient Disposition: Home, Self-Care Referrals: Physician,Unknown [Primary Care Provider] - Discharge Medications: Continued atorvastatin 20 mg Tablet 20 mg PO BEDTIME RF: 0 enalapril maleate 10 mg Tablet 10 mg PO DAILY RF: 0 fenofibrate 40 mg Tablet 160 mg PO DAILY RF: 0 Tresiba FlexTouch U-100 100 unit/mL (3 mL) Insulin Pen 50 unit SUBCUT BID RF: 0 Discharge Orders: Discharge Order (Routine); Ordered 01/26/21 Ordered By: Quincy Carr Activity on Discharge: As tolerated Stand Alone Forms: Patient Portal Discharge page Care Plan Goals: recovery Health Concerns: recent covid Plan of Treatment: continue recovery, no specific treatements
--- NOTE | 2021-01-26 13:17 | MHC.CM.PN ---
pt cleared for DC home today. Pt resides in a family half-way, pt was swabbed for COVID-19 today with negative results.
== END 2021-01-26 15:50 | disposition home or self-care (01) | DRG 177 ==
LOC: HO.ED 15:11 → HO.EDOVER 16:32 → HO.IMC 19:06
PROVIDERS: Family Medicine; Hospitalist; Internal Medicine; Admitting Provider Internal Medicine; Emergency Provider Emergency Medicine; Visit Provider Internal Medicine
DX: U07.1 COVID-19 (principal); J12.82 Pneumonia due to coronavirus disease 2019; J96.01 Acute respiratory failure with hypoxia; R80.9 Proteinuria, unspecified; E87.5 Hyperkalemia; E11.65 Type 2 diabetes mellitus with hyperglycemia; T38.0X5A Adverse effect of glucocorticoids and synthetic analogues, initial encounter; Y92.239 Unspecified place in hospital as the place of occurrence of the external cause; E78.5 Hyperlipidemia, unspecified; E66.9 Obesity, unspecified; Z68.32 Body mass index [BMI] 32.0-32.9, adult; Z79.4 Long term (current) use of insulin; Z79.899 Other long term (current) drug therapy
CPT/HCPCS: 36415; 71045; 74176; 80048; 80053; 81025; 82728; 82947; 83036; 83615; 83690; 84132; 85025; 85027; 86140; 87635; 99285; J1100; J1650; J2270; J2405